=== PATIENT | female | born 1965 | race Caucasian/White ===

== ENCOUNTER 2025-07-13 10:41 | Observation (INO) | payer OTHER, SELFPAY ==
[2025-07-13] VITALS (18 sets, daily range): BP systolic 134–209; BP diastolic 60–98; PULSE 68–135; RESP 14–36; TEMP 36.4–36.8; O2SAT 94–100; BMI 25.0
--- NOTE | 2025-07-13 | ECHO_ITS ---
Patient Info Name: Liss Blood Age: 60 years : 1965 Gender: Female Ht: 62 in Wt: 141 lbs BSA: 1.69 m2 HR: 87 bpm BP: 205 / 98 mmHg Technical Quality: Good Exam Date: 07/13/2025 2:52 PM Patient Status: I Admit Date: 07/13/2025 Exam Type: CA echo doppler color flow Complete two-dimensional, color flow and Doppler transthoracic echocardiogram is performed. Staff Referring Physician: Diogenes Rae MD Hand Woodworking Sander: Mariana Alejandra Attending Provider: Amelia Avila Summary 1. Complete two-dimensional, color flow and Doppler transthoracic echocardiogram is performed. 2. Left ventricular chamber dimension is normal. 3. Left ventricular systolic function is normal, estimated at 60-65. 4. There is mild concentric increased left ventricular wall thickness. 5. The left ventricular diastolic function is grade I diastolic dysfunction. 6. E/e' 8 is minimally elevated. 7. The aortic valve is not well visualized. Cannot determine number of aortic valve leaflets. 8. There is moderate aortic valve sclerosis. 9. There is mild aortic valve stenosis with a peak velocity of 206 cm/s, mean gradient of 9 mmHg, and aortic valve area of 1.7 cm2. Left Ventricle E/e' 8 is minimally elevated. Left ventricular chamber dimension is normal. Left ventricular systolic function is normal, estimated at 60-65. There is mild concentric increased left ventricular wall thickness. The left ventricular diastolic function is grade I diastolic dysfunction. Right Ventricle Right ventricular chamber dimension is normal. Right ventricular systolic function is normal and with normal TAPSE 1.8 cm. Left Atria Left atrial chamber dimension is normal. Right Atria Right atrial chamber dimension is normal. Aortic Valve The aortic valve is not well visualized. Cannot determine number of aortic valve leaflets. There is moderate aortic valve sclerosis. There is mild aortic valve stenosis with a peak velocity of 206 cm/s, mean gradient of 9 mmHg, and aortic valve area of 1.7 cm2. There is no aortic valve regurgitation. Pulmonic Valve There is no pulmonic regurgitation. Mitral Valve There is no mitral valve stenosis. There is no mitral valve regurgitation. Tricuspid Valve There is no tricuspid valve regurgitation. Pericardium/Pleural There is no pericardial effusion. Inferior Vena Cava Normal inferior vena cava with >50% collapse upon inspiration consistent with normal right atrial pressure, 5 mmHg. Aorta The aortic root size at the sinus of Valsalva is normal. Left Ventricular Outflow Tract Name Value Normal LVOT 2D LVOT Diameter 1.8 cm LVOT Doppler LVOT Peak Velocity 140 cm/s LVOT Peak Gradient 7 mmHg LVOT Mean Gradient 4 mmHg LVOT VTI 30 cm LVOT VTI/AV VTI Ratio 0.6 LVOT Stroke Volume 77 ml LVOT CO 6.9 l/min LVOT CI 4.1 l/min/m2 Pulmonic Valve Name Value Normal RVOT Doppler RVOT Peak Velocity 120 cm/s RVOT Peak Gradient 6 mmHg PV Doppler PV Peak Velocity 157 cm/s PV Peak Gradient 10 mmHg Mitral Valve Name Value Normal MV Diastolic Function MV E Peak Velocity 93 cm/s MV A Peak Velocity 102 cm/s MV E/A 0.9 MV Decel Time (PW) 237 ms MV Annular TDI MV E/e' (Septal) 10.3 MV E/e' (Lateral) 7.6 MV E/e' (Average) 9.0 Tricuspid Valve Name Value Normal Estimated PAP/RSVP RA Pressure 5 mmHg <=5 Aortic Valve Name Value Normal AV Doppler AV Peak Velocity 206 cm/s AV Peak Gradient 16 mmHg AV Mean Gradient 9 mmHg AV VTI 46 cm AV Area (Cont Eq VTI) 1.7 cm2 >=3.0 AV Area (Cont Eq Bart) 1.7 cm2 AV DI (Bart) 0.68 AV Regurgitation 2D LVOT Area 2.6 cm2 Ventricles Name Value Normal LV Dimensions 2D/MM IVS Diastolic Thickness (2D) 1.0 cm 0.6-1.0 LVID Diastole (2D) 4.4 cm 3.8-5.2 LVIW Diastolic Thickness (2D) 0.7 cm 0.6-0.9 LVID Systole (2D) 2.1 cm 2.2-3.5 LVOT Diameter 1.8 cm LV Mass (2D Cubed) 120.28 g 67.00-162.00 LV Mass Index (2D Cubed) 71 g/m2 43-95 Relative Wall Thickness (2D) 0.34 <=0.42 LV Fractional Shortening/Ejection Fraction 2D/MM LV Fractional Shortening (2D) 46 % 27-45 LV EF (2D Teichholz) 84 % LV Diastolic Volume (4C MOD) 83 ml LV EF (4C MOD) 62 % LV Diastolic Volume (2C MOD) 80 ml LV EF (2C MOD) 59 % LV Diastolic Volume (BP MOD) 83 ml 46-106 LV Diastolic Volume Index (BP MOD) 49 ml/m2 29-61 LV Systolic Volume (BP MOD) 33 ml 14-42 LV Systolic Volume Index (BP MOD) 20 ml/m2 8-24 LV EF (BP MOD) 60 % 54-74 LV Diastolic Length (4C) 7.4 cm LV Systolic Length (4C) 5.9 cm LV Stroke Volume (4C MOD) 51 ml Atria Name Value Normal LA Dimensions LA Volume (4C A-L) 26 ml LA Volume (BP A-L) 27 ml RA Dimensions RA Systolic Major Killen Length (4C) 4.2 cm 2.2-2.8 RA Area (4C) 10.8 cm2 <=18.0 Report Signatures
--- NOTE | ~2025-07-13 | MR_ITS ---
EXAMINATION: MR brain/brain stem wo con DATE: 07/14/2025 09:04 INDICATION: Hypertension and dizziness TECHNIQUE: Magnetic resonance imaging (MRI) of the brain and brainstem was performed without intravenous contrast. Sequences included sagittal and axial T1-weighted SE, axial diffusion-weighted FS SE, axial 3D SWAN, axial T2-weighted FLAIR, and axial T2-weighted FSE. Apparent diffusion coefficient (ADC) maps were created. COMPARISON: None. FINDINGS: There is a region of increased T2 signal and restricted diffusion with decreased intensity on the ADC map at the left central aspect of the pernell consistent with acute to early subacute infarct of likely less than 10 days of age. No intracranial hemorrhage or abnormal intracranial mass lesion. There are a few scattered small foci of nonspecific increased T2-weighted signal intensity in the cerebral white matter, predominantly involving the deep and periventricular white matter which is within normal limits for age. There are no intraparenchymal signal abnormalities seen on the other pulse sequences. The ventricles are symmetric and normal in size. There are no abnormal extra-axial fluid collections. Flow voids are seen in the cerebral arteries on the T2- weighted sequences consistent with their expected patency. Mild mucosal thickening the bilateral ethmoid sinuses. Visualized orbits and soft tissues are unremarkable. IMPRESSION: 1. 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 Reviewed, dictated and finalized at location A.
--- NOTE | ~2025-07-13 | XR_ITS ---
EXAMINATION: XR chest 1V portable 07/13/2025 12:41 INDICATION: Dizziness TECHNIQUE:A single portable AP upright frontal image of the chest was obtained. COMPARISON: 07/12/2025 FINDINGS: Heart is not enlarged. No pneumothorax. No pleural effusion. No free air under the diaphragm. Opacities in the lower lungs. IMPRESSION: 1: Small opacities in the mid and lower lungs which represents atelectasis/scarring or infiltrates. Reviewed, dictated and finalized at location A. IMPRESSION: 1: Small opacities in the mid and lower lungs which represents atelectasis/sca rring or infiltrates.
--- NOTE | ~2025-07-13 | CT_ITS ---
EXAMINATION: CTA brain carotid DATE: 07/14/2025 19:10 CDT INDICATION: Hypertension and dizziness TECHNIQUE: Computed tomographic angiography (CTA) of the head was performed without and with 100 mL Omnipaque-350 intravenous contrast. CTA of the neck was performed with intravenous contrast. The dose-length product was 1556.22 mGy-cm. Maximum intensity projection and volume rendered 3D-reconstructions were created by the technologist on a separate workstation. COMPARISON: CT brain dated 07/13/2025. FINDINGS: HEAD CTA: Brain parenchymal volume is normal for age. No ventriculomegaly or midline shift. Paranasal sinuses demonstrate mild mucosal thickening of the maxillary sinuses. Mastoids are pneumatized. No depressed skull fractures. There is mild atherosclerosis of the cavernous segments of the carotid arteries. Otherwise, the arteries are within normal limits without occlusion or significant stenosis. Dominant right vertebral artery. NECK CTA: There is mild atherosclerotic plaque at the origin internal carotid arteries with 32% stenosis of the right internal carotid artery and less than 20% stenosis of the left internal carotid artery. No evidence for dissection. The origins of the vertebral and common carotid arteries are patent. Lung apices are normal. No significant cervical lymphadenopathy. Thyroid gland is unremarkable. Lung apices are normal. IMPRESSION: 1: No significant vascular abnormality of the head or neck. 2: No acute intracranial abnormality. Reviewed, dictated and finalized at location O.
--- NOTE | ~2025-07-13 | CT_ITS ---
EXAMINATION: CT brain wo con DATE: 07/13/2025 12:18 INDICATION: Slurred speech TECHNIQUE: Computed tomography (CT) of the head was performed without intravenous contrast. The dose-length product was 529.67 mGy-cm. COMPARISON: None FINDINGS: No acute intracranial hemorrhage. No mass effect. No midline shift. No hydrocephalus. No skull fracture. Visualized paranasal sinuses and mastoid air cells are clear. Metallic density about the left ear with adjacent artifact. IMPRESSION: 1. No acute intracranial hemorrhage. No mass effect. Reviewed, dictated and finalized at location A.
--- NOTE | 2025-07-13 10:57 | ECG_ITS ---
Test Date: 2025-07-13 11:05:43 Measurements Intervals [place] Rate: 125 P: 64 DC: 153 QRS: 18 QRSD: 92 T: 44 QT: 307 QTc: 444 Interpretive Statements SINUS TACHYCARDIA INCOMPLETE RIGHT BUNDLE BRANCH BLOCK ABNORMAL ECG No previous ECG available for comparison Electronically Signed On 07-13-2025 11:13:39 CDT by Mike Mullins D.O.
[2025-07-13 11:05] LABS: Hematocrit 46.3 % (37.0-47.0); Hemoglobin 15.3 g/dL (12.0-15.0); Immature Granulocyte Percent A 0.4 % (0-0.5); Lymphocytes Absolute Auto 2.43 K/mm3 (0.9-3.2); Mean Corpuscular HGB Conc 33.0 g/dl (32-36); Mean Corpuscular Hemoglobin 30.0 pg (26-34); Mean Corpuscular Volume 90.8 fl (80-100); Nucleated Red Blood Cells Absolute Auto 0.000 K/mm3 (0.0-0.012); Nucleated Red Blood Cells Perc 0.0 % (0.0-0.2); Platelet Count Result 289 k/mm3 (150-375); Red Blood Count 5.10 M/mm3 (4.2-5.4); White Blood Count 9.9 K/mm3 (4.5-10.0)
--- NOTE | 2025-07-13 11:09 | ED.GENADULT ---
HPI - General Adult General Chief complaint: Dizziness Stated complaint: dizzy, slurred speech Time Seen by Provider: 07/13/25 11:09 Source: patient and family Mode of arrival: ambulatory Limitations: no limitations History of Present Illness HPI narrative: 60 years old white female came from home by private car with her family who is telling me that patient been feeling dizzy, slurred speech and acting off prior to arrival. Patient usually wake up at 5:00 a.m. to go to work and was doing okay at that time. at work she take a break and during that break went back home for half an hour then go back to work at again. During that break her family noticed the above symptoms. Patient is healthy otherwise, not on any medication, last time was seen by a physician years ago. She smokes cigarettes, drink alcohol almost daily, denies any drug use or abuse. Currently patient is asymptomatic. The slurry speech is improving according to her family. Patient is restless and does not want stay in the hospital or doing any blood workup at this time. Eventually she agreed after pressure from her family. She denies any fever, chills, nausea, vomiting, chest pain, shortness of breath, headache, back pain or focal neuro deficit. Related Data Home Medications ?Medication ?Instructions ?Recorded ?Confirmed ?Last Taken ?Type No Home Medications 05/06/22 07/13/25 Unknown History Allergies Allergy/AdvReac Type Severity Reaction Status Date / Time No Known Allergies Allergy Unknown Verified 07/13/25 11:24 Review of Systems Review of Systems: All systems reviewed & are unremarkable except as noted in HPI and below PMFSH Past Medical History Medical History Heart murmur Screening mammogram, encounter for Miscarriage High cholesterol Abnormal Pap smear of cervix ASCUS HPV- (2010) Surgical History Surgical History History of dilation and curettage suction d&c History of foot surgery 2010 tumor removed lt foot History of 88, 89 Family History Family History Father Diabetes mellitus Hypertension TIA (transient ischemic attack) Mother Diabetes mellitus Hypertension Other Malignant carcinoid tumor of lung maternal aunt Social History Social History Smoking packs per day: 1 Smoking cigarettes per day: 20.0 Years smoked: 40 Smoking pack-years: 40.00 Smoking status: Current every day smoker Tobacco type: cigarettes Alcohol intake: current Drinks per week: 6 Substance use: never Substance use type: does not use Lack of Transportation: No Lack of Food: Never True Current Housing: I Have Housing Concerned About Future Housing: No Difficulty Paying Gas/Electric Bills: No Difficulty Paying for Meds: No Currently Unemployed: No Education: Trade/Vocational Certificate Difficulty w/ Childcare or Family Care: No Living arrangements: other Additional living arrangements comments: Occupation/Education: occupation 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 Gender identity (if verbalized by the patient): Female Sexual Orientation (if Verbalized by the Patient): Straight or Heterosexual Spiritual care concerns: No Exam Narrative: General appearance: Well-developed, well-nourished , anxious, restless Skin: Normal color Head: Normocephalic, nontraumatic Eyes: Clear conjunctiva ENT: Oropharynx normal, ears normal, nose normal Neck: Supple, nontender Chest and respiratory: Airway patent, no respiratory distress, no accessory muscle use Heart: Regular rate/rhythm Abdomen: Soft, nontender, no organomegaly, quiet bowel sounds Vascular: Normal peripheral pulses, normal capillary refill. Musculoskeletal: Normal range of motion, nontender back Neurologic: Alert and oriented ?3, MEDICAL STAFF COORDINATOR is normal as tested, no gross motor deficit Course Vital Signs Vital signs: Vital Signs Temperature 36.8 C 07/13/25 10:57 Pulse Rate 128 H 07/13/25 10:57 Respiratory Rate 28 H 07/13/25 10:57 Blood Pressure 202/93 H 07/13/25 10:57 Pulse Oximetry 99 07/13/25 10:57 Oxygen Delivery Room Air 07/13/25 10:57 Temperature 36.6 C 07/14/25 08:00 Pulse Rate 97 07/14/25 16:00 Respiratory Rate 19 07/14/25 10:00 Blood Pressure 150/74 H 07/14/25 10:00 Pulse Oximetry 99 07/14/25 10:00 Oxygen Delivery Room Air 07/14/25 20:00 Medical Decision Making MDM Narrative Medical decision making narrative: patient came to the hospital from home with chief complain of dizziness, feeling of and slurred speech Vital signs showing blood pressure 202/93, heart rate 128, respiration 28 otherwise insignificant Physical examination showing restless anxious patient Differential diagnosis uncontrolled hypertension, hypertensive encephalopathy, CVA, electrolyte imbalance, dehydration, kidney failure Blood workup today includes CBC, CMP, troponin, proBNP, coags showed blood glucose of 529, sodium of 133 otherwise within normal limit Blood gas on room air showed pH of 7.49 EKG on arrival showed sinus tachycardia Chest x-ray on arrival showed no acute abnormality CT head without contrast showed no acute abnormality Diagnosis hyperglycemia, hypertension Admit to hospitalist Vital Signs Vital Signs: Vital Signs Temperature 36.8 C 07/13/25 10:57 Pulse Rate 128 H 07/13/25 10:57 Respiratory Rate 28 H 07/13/25 10:57 Blood Pressure 202/93 H 07/13/25 10:57 Pulse Oximetry 99 07/13/25 10:57 Oxygen Delivery Room Air 07/13/25 10:57 Temperature 36.6 C 07/14/25 08:00 Pulse Rate 97 07/14/25 16:00 Respiratory Rate 19 07/14/25 10:00 Blood Pressure 150/74 H 07/14/25 10:00 Pulse Oximetry 99 07/14/25 10:00 Oxygen Delivery Room Air 07/14/25 20:00 Lab Data 07/14/25 05:04 07/14/25 05:04 Labs: Lab Results 07/13/25 07/13/25 07/13/25 Range/Units 10:45 10:58 10:59 WBC 9.9 (4.5-10.0) K/mm3 RBC 5.10 (4.2-5.4) M/mm3 Hgb 15.3 H (12.0-15.0) g/dL Hct 46.3 (37.0-47.0) % MCV 90.8 (80-100) fl MCH 30.0 (26-34) pg MCHC 33.0 (32-36) g/dl RDW 12.8 (11.5-14.5) % Plt Count 289 (150-375) k/mm3 MPV 11.2 H (7.4-10.4) fl Immature Gran % (Auto) 0.4 (0-0.5) % Neut % (Auto) 67.3 (45.5-73.1) % Lymph % (Auto) 24.7 (18.3-44.2) % [place] % (Auto) 4.3 (2.6-8.5) % Eos % (Auto) 2.7 (0-4.4) % Baso % (Auto) 0.6 (0.2-1.2) % Lymph # (Auto) 2.43 (0.9-3.2) K/mm3 [place] # (Auto) 0.4 (0.1-0.6) K/mm3 Eos # (Auto) 0.3 (0-0.3) K/mm3 Baso # (Auto) 0.1 (0.0-0.1) K/mm3 Abs Immat Gran (auto) 0.04 H (0.00-0.031) K/mm3 Absolute Neuts (auto) 6.6 (1.3-6.7) K/mm3 Absolute Nucleated RBC 0.000 (0.0-0.012) K/mm3 Nucleated RBC % 0.0 (0.0-0.2) % Sodium 133 L (137-145) mmol/L Potassium 4.2 (3.4-5.0) mmol/L Chloride 97 L (98-107) mmol/L Carbon Dioxide 24 (22-30) mmol/L Anion Gap 12 (4-12) mmol/L BUN 12 (7-17) mg/dL Creatinine 0.56 L (0.7-1.0) mg/dL Estim Creat Clear Calc 70 ml/min Estimated GFR > 60 (59 - ) Glucose 501 H* (65-110) mg/dL POC Capillary Glucose 499 H (65-105) mg/dl Hemoglobin A1c 11.5 H (<5.7) % Calcium 9.8 (8.4-10.2) mg/dL Phosphorus 3.8 (2.5-4.5) mg/dL Magnesium 1.9 (1.6-2.3) mg/dL Total Bilirubin 0.9 (0.2-1.3) mg/dL AST 25 (14-36) U/L ALT 22 (6-35) U/L Alkaline Phosphatase 180 H (38-126) U/L Total Protein 8.8 H (6.3-8.2) g/dL Albumin 4.7 (3.5-5.1) g/dL Beta-Hydroxybutyrate/Acetoacetate 0.36 H (0.02-0.27) mmol/L Urine Color (Yellow) Urine Appearance (Clear) Urine pH (5.0-9.0) Ur Specific [place] (1.001-1.035) Urine Protein (Negative) mg/dL Urine Glucose (UA) (Negative) mg/dL Urine Ketones (Negative) mg/dL Ur Blood (Man) (Negative) Urine Nitrate (Negative) Urine Bilirubin (Negative) Urine Urobilinogen (<2.0) mg/dL Leukocyte Esterase Rfl (Negative) VITALY/UL Urine RBC (0-2) /hpf Urine WBC (0-3) /hpf Ur Squamous Epith Cells (Few) /hpf Urine Bacteria /hpf Urine Casts Urine Opiates Screen (Negative) Urine Methadone Screen (Negative) Ur Barbiturates Screen (Negative) Ur Phencyclidine Scrn (Negative) Ur Amphetamine Screen (Negative) U Benzodiazepines Scrn (Negative) Urine Cocaine Screen (Negative) U Cannabinoids Screen (Negative) Ethyl Alcohol < 10 (<10) mg/dL Influenza A (RT-PCR) (Negative) Influenza B (RT-PCR) (Negative) RSV (RT-PCR) (Negative) SARS-CoV-2 RNA (RT-PCR) (Negative) 07/13/25 07/13/25 Range/Units 11:17 13:14 WBC (4.5-10.0) K/mm3 RBC (4.2-5.4) M/mm3 Hgb (12.0-15.0) g/dL Hct (37.0-47.0) % MCV (80-100) fl MCH (26-34) pg MCHC (32-36) g/dl RDW (11.5-14.5) % Plt Count (150-375) k/mm3 MPV (7.4-10.4) fl Immature Gran % (Auto) (0-0.5) % Neut % (Auto) (45.5-73.1) % Lymph % (Auto) (18.3-44.2) % [place] % (Auto) (2.6-8.5) % Eos % (Auto) (0-4.4) % Baso % (Auto) (0.2-1.2) % Lymph # (Auto) (0.9-3.2) K/mm3 [place] # (Auto) (0.1-0.6) K/mm3 Eos # (Auto) (0-0.3) K/mm3 Baso # (Auto) (0.0-0.1) K/mm3 Abs Immat Gran (auto) (0.00-0.031) K/mm3 Absolute Neuts (auto) (1.3-6.7) K/mm3 Absolute Nucleated RBC (0.0-0.012) K/mm3 Nucleated RBC % (0.0-0.2) % Sodium (137-145) mmol/L Potassium (3.4-5.0) mmol/L Chloride (98-107) mmol/L Carbon Dioxide (22-30) mmol/L Anion Gap (4-12) mmol/L BUN (7-17) mg/dL Creatinine (0.7-1.0) mg/dL Estim Creat Clear Calc ml/min Estimated GFR (59 - ) Glucose (65-110) mg/dL POC Capillary Glucose 360 H (65-105) mg/dl Hemoglobin A1c (<5.7) % Calcium (8.4-10.2) mg/dL Phosphorus (2.5-4.5) mg/dL Magnesium (1.6-2.3) mg/dL Total Bilirubin (0.2-1.3) mg/dL AST (14-36) U/L ALT (6-35) U/L Alkaline Phosphatase (38-126) U/L Total Protein (6.3-8.2) g/dL Albumin (3.5-5.1) g/dL Beta-Hydroxybutyrate/Acetoacetate (0.02-0.27) mmol/L Urine Color Yellow (Yellow) Urine Appearance Cloudy H (Clear) Urine pH 7.0 (5.0-9.0) Ur Specific [place] 1.040 H (1.001-1.035) Urine Protein Negative (Negative) mg/dL Urine Glucose (UA) 3+ H (Negative) mg/dL Urine Ketones Trace H (Negative) mg/dL Ur Blood (Man) Negative (Negative) Urine Nitrate Negative (Negative) Urine Bilirubin Negative (Negative) Urine Urobilinogen 0.2 (<2.0) mg/dL Leukocyte Esterase Rfl Negative (Negative) VITALY/UL Urine RBC 0-2 (0-2) /hpf Urine WBC 0-5 (0-3) /hpf Ur Squamous Epith Cells None seen (Few) /hpf Urine Bacteria None seen /hpf Urine Casts 0-2 Urine Opiates Screen Negative (Negative) Urine Methadone Screen Negative (Negative) Ur Barbiturates Screen Negative (Negative) Ur Phencyclidine Scrn Negative (Negative) Ur Amphetamine Screen Negative (Negative) U Benzodiazepines Scrn Negative (Negative) Urine Cocaine Screen Negative (Negative) U Cannabinoids Screen Negative (Negative) Ethyl Alcohol (<10) mg/dL Influenza A (RT-PCR) Negative (Negative) Influenza B (RT-PCR) Negative (Negative) RSV (RT-PCR) Negative (Negative) SARS-CoV-2 RNA (RT-PCR) Negative (Negative) ABG Data ABG results: 07/13/25 11:38 Puncture Site Right radial ABG pH 7.476 H ABG pCO2 31.0 L ABG pO2 85.1 ABG PO2/FiO2 Ratio 4.05 ABG HCO3 22.4 ABG O2 Saturation 97.1 ABG O2 Content 19.7 ABG Base Excess -0.1 A-a Gradient 27.5 Oxyhemoglobin 89.7 L Total Hemoglobin 15.6 O2 Delivery Device Room air O2 Liters/Min Not Reportable FiO2 21 Critical Care Time Critical Care Time Critical Care Time: Yes Total Critical Care Time: 30 Discharge Plan Discharge Clinical Impression: Hypertension, Hyperglycemia Patient Disposition: Still a Patient Condition: Improved
--- OUTSIDE RECORDS SUMMARY | 2025-07-13 11:24 | XMS_ITS | Clinical Summary ---
Author Organization 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 Gender Identity Not on file Sexual Orientation Not on file Plan of Treatment Health Maintenance Due Date Last Done Comments Hepatitis C Virus (HCV) Screening 1965 TdaP Immunization 1965 Pap Smear 1984 Cervical Cancer Screening (CCS) 1993 HPV/Cotest 1993 Cologuard 2008 Colonoscopy 2008 Colorectal Cancer Screening 2008 Immunochemical Fecal Occult Blood 2008 Pneumococcal Immunization (5 0+ years) (1 of 1 - PCV) 2013 Zoster Immunization (1 of 2) 2013 SARS-COV-2 Immunization (1 - 2023- season) 2024 Influenza Immunization (#1) 2025 Respiratory Syncytial Virus (RSV) Immunization (Adult) (1 - 1-dose 75+ series) 2038 Hepatitis B Immunization Aged Out No longer eligible based on patient's age to complete this topic Human Papillomavirus (HPV) Immunization Aged Out No longer eligible b ased on patient's age to complete this topic Meningococcal Immunization (ACWY) Aged Out No longer eligible based on patient's age to complete this topic Rotavirus Immunization Aged Out No lo nger eligible based on patient's age to complete this topic
[2025-07-13 11:30] LABS: Add Urine Microscopic? YES; Appearance Urine Cloudy (Clear); Glucose Urine UA 3+ mg/dL (Negative); Leukocyte Esterase Ur Negative LEU/UL (Negative); Nitrate Urine Negative (Negative); Non Pathogenic Casts 0-2; Specific Grav Ur 1.040 (1.001-1.035)
[2025-07-13 11:35] LABS: Beta-Hydroxybutyrate/Acetoacetate 0.36 mmol/L (0.02-0.27)
[2025-07-13] MEDS: SODIUM CHLORIDE 0.9% IV 1,000 ML 1500 ML IV CONT (11:38)
[2025-07-13 11:41] LABS: Alveolar/Arterial O2 Gradient 27.5 mmHg; Fractional Inspired Oxygen 21 %; HCO3 ABG 22.4 mEq/l (22.0-26.0); Oxygen Content ABG 19.7 %vol (16.0-22.0); Oxygen Saturation ABG 97.1 % (95.0-100.0); PCO2 ABG 31.0 mmHg (35.0-45.0); PO2 ABG 85.1 mmHg (80.0-100.0); PO2 FiO2 Ratio Arterial Blood 4.05 %
[2025-07-13] MEDS: diazePAM INJ (*CRX) 10 MG/2 ML SYRINGE 5 MG IV PUSH (11:41)
[2025-07-13 11:43] LABS: Modified Allen's Test Pass; Site Drawn RIGHT RADIAL
[2025-07-13 12:00] LABS: Alanine Aminotransferase 22 U/L (6-35); Albumin Level 4.7 g/dL (3.5-5.1); Alkaline Phosphatase 180 U/L (38-126); Anion Gap 12 mmol/L (4-12); Aspartate Amino Transferase 25 U/L (14-36); Bilirubin,Total 0.9 mg/dL (0.2-1.3); Blood Urea Nitrogen 12 mg/dL (7-17); Calcium 9.8 mg/dL (8.4-10.2); Carbon Dioxide 24 mmol/L (22-30); Chloride 97 mmol/L (98-107); Estimated CRCL calculation 70 ml/min; Estimated Glomerular Filt Rate > 60; Glucose 501 mg/dL (65-110); Magnesium 1.9 mg/dL (1.6-2.3); Potassium 4.2 mmol/L (3.4-5.0); Sodium 133 mmol/L (137-145); Total Protein 8.8 g/dL (6.3-8.2)
[2025-07-13 12:07] LABS: Influenza A QL RT-PCR Negative (Negative); Influenza B QL RT-PCR Negative (Negative); RSV RNA, RT-PCR Negative (Negative); SARS-CoV-2 RNA PCR Negative (Negative)
[2025-07-13 12:11] LABS: Cannabinoid Screen Urine Negative (Negative)
--- OUTSIDE RECORDS SUMMARY | 2025-07-13 12:19 | XMS_ITS | Clinical Summary ---
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
[2025-07-13] MEDS: INSULIN HUMAN REGULAR (*BKC) 100 UNITS/ML 10 UNITS IV PUSH (12:37)
[2025-07-13 13:04] LABS: Hemoglobin A1C 11.5 % (<5.7)
[2025-07-13] MEDS: INSULIN HUMAN REGULAR (*BKC) 100 UNITS in SODIUM CHLORIDE 0.9% IV 99 ML 6 UNITS IV CONT (13:17)
--- NOTE | 2025-07-13 14:08 | WPDCNINT ---
Assessment and Plan Assessment and plan (1) DKA (diabetic ketoacidosis): Code(s): E11.10 - Type 2 diabetes mellitus with ketoacidosis without coma Status: Acute Assessment and Plan: Patient presented with elevated blood sugar and slightly elevated beta hydroxybutyrate. Her anion gap is normal. She is in mild DKA Pt was given IVF bolus and I will give additional 500 mL LR bolus She was given insulin bolus and started insulin infusion which will be continued Continue Q1H glucose monitoring is being done Serial labs ordered and will be monitor Replace electrolytes as needed Will transition to SC insulin once AG is closed NPO Consult diabetic take educator and dietitian (2) Dizziness: Code(s): R42 - Dizziness and giddiness Status: Acute Assessment and Plan: Patient presented with dizziness which could be secondary to hyperglycemia, DKA or elevated blood pressure. 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 I will try to bring now close to 180. Since patient is asymptomatic at this time P.r.n. labetalol Start p.o. losartan and Norvasc Plan DVT prophylaxis - SCD Nutrition - NPO Code Status - Full Code Total Critical Care Time - 30 minutes Due to a high probability of clinically significant, life threatening deterioration, the patient required my highest level of preparedness to intervene emergently and I personally spent this critical care time directly and personally managing the patient. This critical care time included obtaining a history; examining the patient; pulse oximetry; ordering and review of studies; arranging urgent treatment with development of a management plan; evaluation of patient's response to treatment; frequent reassessment; and discussions with other providers. It was exclusive of separately billable procedures and treating other patients and teaching time. Please see Assessment and Plan section and the rest of the note for further information on patient assessment and treatment Cell Support Operator Consult Note Consult date: 07/13/25 Reason for consult: Uncontrolled hypertension, DKA HPI: Liss Blood is a 60 year old female with no significant past medical history who also does not see a physician and has not seen a physician in last many years presented with chief complaint of dizziness and confusion. Patient states she was forced to come to the hospital by her as she did not think anything serious was going on. She states she feels it dizzy today but no loss of consciousness or passing out. No chest pain shortness a breath palpitations abdominal pain nausea vomiting diarrhea constipation hematochezia melena. No blurred vision. states the patient had temporally with slurred speech where he could not understand what she was saying hence he what worried and brought her to the hospital. At this time patient states she is back to her baseline and does not have any symptoms. Her speech is normal. She states that she does not know why she needs to stay in the hospital and would like to be discharged. She denies any polyuria polydipsia nocturia but does admit to drinking lot of fluids during the day and also urinating after drinking. She does have good appetite but has lost weight. She has not had any lab workup blood pressure check for last few years. All other systems were reviewed and were negative Workup in the ER showed normal CBC platelet and WBC electrolyte showed blood glucose elevated at 501 hemoglobin A1c 11.5 and positive beta hydroxybutyrate although anion gap was normal, UA was negative for infection toxicology was negative, head CT was negative and chest x-ray was fairly unremarkable. Her systolic blood pressure was in 200 range and she received 1 dose of labetalol. Patient was given fluid bolus L and started on IV insulin infusion. Patient is now being admitted to ICU for DKA and low blood pressure Review of Systems Review of Systems: All systems reviewed & are unremarkable except as noted in HPI and below (HPI) [facility] Past Medical History Medical History (Updated 07/13/25 @ 14:10 by Diogenes Rae MD) Heart murmur Screening mammogram, encounter for Miscarriage High cholesterol Abnormal Pap smear of cervix ASCUS HPV- (2010) Surgical History Surgical History History of dilation and curettage suction d&c History of foot surgery 2010 tumor removed lt foot History of 86, 89 Family History Family History Father Diabetes mellitus Hypertension Mother Diabetes mellitus Hypertension Other Malignant carcinoid tumor of lung maternal aunt Social History Social History (Updated 07/13/25 @ 14:08 by Diogenes Rae MD) Smoking packs per day: 1 Smoking cigarettes per day: 20.0 Years smoked: 40 Smoking pack-years: 40.00 Smoking status: Current some day smoker Tobacco type: cigarettes Alcohol intake: current Drinks per week: 10 Substance use: never Substance use type: does not use Living arrangements: other Additional living arrangements comments: Occupation/Education: occupation 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 Gender identity (if verbalized by the patient): Female Sexual Orientation (if Verbalized by the Patient): Straight or Heterosexual Meds Home Medications and Allergies Home Medications ?Medication ?Instructions ?Recorded ?Confirmed ?Type No Home Medications 05/06/22 07/13/25 History Allergies Allergy/AdvReac Type Severity Reaction Status Date / Time No Known Allergies Allergy Unknown Verified 07/13/25 11:24 Vital Signs Vital Signs - 24 hr 07/13/25 10:57 07/13/25 11:07 07/13/25 11:07 Temperature 36.8 C 36.8 C Pulse Rate 128 H 128 H 128 H Respiratory Rate 28 H 28 H Blood Pressure 202/93 H 202/93 H Pulse Oximetry 99 99 Oxygen Delivery Room Air 07/13/25 11:33 07/13/25 11:50 07/13/25 12:01 Temperature Pulse Rate 135 H 107 H 105 H Respiratory Rate 25 H 24 H 19 Blood Pressure 209/96 H 194/96 H 151/79 H Pulse Oximetry 95 96 98 Oxygen Delivery 07/13/25 12:26 07/13/25 12:31 07/13/25 12:54 Temperature Pulse Rate 105 H 110 H 105 H Respiratory Rate 25 H 30 H 26 H Blood Pressure 164/74 H 173/78 H 156/85 H Pulse Oximetry 95 99 97 Oxygen Delivery 07/13/25 13:01 07/13/25 13:24 07/13/25 13:38 Temperature Pulse Rate 103 H 108 H 109 H Respiratory Rate 26 H 36 H 31 H Blood Pressure 149/79 H 174/85 H 205/98 H Pulse Oximetry 97 98 94 Oxygen Delivery Exam Narrative: General: Pt is alert awake and in NAD Lungs/Chest: Trachea central Clear BS B/L, No crackles or wheezing. Cardiac: RRR. Normal S1 S2. No murmurs Circulation: Pedal pulses are intact and symmetrical. Abdomen: Normal bowel sounds.. Soft. NT. ND. Extremities: No clubbing, cyanosis or edema. Warm : NAD Neurologic: Follows commands. AO x3 Moves all 4 extremities PERRL muscle strength is symmetric in all 4 extremities, sensation to touch intact, cranial nerves 2-12 intact, no facial asymmetry, speech normal Skin: No Rash Results Labs 07/13/25 10:59 07/13/25 10:58 Labs: Impressions Head CT 07/13/25 12:36 IMPRESSION: 1. No acute intracranial hemorrhage. No mass effect. Chest X-Ray 07/13/25 12:48 IMPRESSION: 1: Small opacities in the mid and lower lungs which represents atelectasis/scarring or infiltrates. Short CBC 07/13/25 Range/Units 10:59 WBC 9.9 (4.5-10.0) K/mm3 Hgb 15.3 H (12.0-15.0) g/dL Hct 46.3 (37.0-47.0) % Plt Count 289 (150-375) k/mm3 BMP 07/13/25 10:58 Sodium 133 L Potassium 4.2 Chloride 97 L Carbon Dioxide 24 BUN 12 Creatinine 0.56 L Glucose 501 H* Calcium 9.8 Liver Function 07/13/25 Range/Units 10:58 Total Bilirubin 0.9 (0.2-1.3) mg/dL AST 25 (14-36) U/L ALT 22 (6-35) U/L Alkaline Phosphatase 180 H (38-126) U/L Albumin 4.7 (3.5-5.1) g/dL Urine 07/13/25 Range/Units 11:17 Urine Color Yellow (Yellow) Urine Appearance Cloudy H (Clear) Urine pH 7.0 (5.0-9.0) Ur Specific [place] 1.040 H (1.001-1.035) Urine Protein Negative (Negative) mg/dL Urine Glucose (UA) 3+ H (Negative) mg/dL ECG Interpretation: Sinus tachycardia incomplete right bundle-branch block Quality VTE Prophylaxis VTE prophylaxis: mechanical ordered Hospitalist MIPS Advance Care Plan I have confirmed that the patient's Advanced Care Plan is present, code status is documented, or surrogate decision maker is listed in patient medical record.: Yes Medication Reconciliation I have utilized all available resources to obtain, update and review the patients current medications (includes all prescriptions, OTC, herbals, cannabis, and nutritional supplements).: Yes
[2025-07-13] MEDS: LOSARTAN POTASSIUM 25 MG TABLET PO (14:35)
[2025-07-13] MEDS: LACTATED RINGERS 500 ML 999 ML IV CONT (14:36)
[2025-07-13 15:12] LABS: Anion Gap 10 mmol/L (4-12); Blood Urea Nitrogen 11 mg/dL (7-17); Calcium 9.5 mg/dL (8.4-10.2); Carbon Dioxide 20 mmol/L (22-30); Chloride 105 mmol/L (98-107); Estimated CRCL calculation 80 ml/min; Estimated Glomerular Filt Rate > 60; Glucose 259 mg/dL (65-110); Potassium 3.8 mmol/L (3.4-5.0); Sodium 135 mmol/L (137-145)
[2025-07-13] MEDS: KCL 20 MEQ/D5/0.45% SOD CHL 1,000 ML 150 ML IV CONT (15:15)
[2025-07-13] MEDS: SODIUM CHLORIDE 0.9% IV 1,000 ML 150 ML IV CONT (17:08)
--- NOTE | 2025-07-13 17:19 | ADMGEN ---
This patient, Liss Blood, was admitted to [facility]. Patient/family oriented to hospital policies and general routines including ID bracelet, bed and alarms, visiting hours, pain management, procedures, bathroom and other care routines, personal items, smoking policy, room service/diet, and visiting hours. Information on how to activate the Rapid Response Team has been discussed. Patient/Family are encouraged to report perceived risks to care and to ask questions if they do not understand what they are told or what they should do.
--- NOTE | 2025-07-13 18:50 | P.HP_ITS ---
H&P: HPI History of Present Illness Date/Time: 07/13/25 18:50 Chief Complaint: Slurred speech and dizziness Narrative: 60 yo female with no significant PMH, who presented to the ER on account of slurred speech and dizziness which started about 730 am. noted her speech was slurred and noticed an unstable gait. However symptoms have resolved at the time of this encounter. Patinet denies any chest pain, abd pain, vomiting, focal weakness/deficits, dysuria and no diarrhea. Er eval BP 202/93, labs notable for BG 501, A1c 11.5 CT head unremarkable. Critical care was consulted prior to admission. Review of Systems Review of Systems: All other systems were reviewed and negative except as noted in the HPi above All systems reviewed & are unremarkable except as noted in HPI and below (HPI) [facility] Past Medical History Medical History (Updated 07/13/25 @ 14:10 by Diogenes Rae MD) Heart murmur Screening mammogram, encounter for Miscarriage High cholesterol Abnormal Pap smear of cervix ASCUS HPV- (2010) Surgical History Surgical History History of dilation and curettage suction d&c History of foot surgery 2010 tumor removed lt foot History of 88, 92 Family History Family History (Updated 07/13/25 @ 17:22 by Adrienne Gage RN) Father Diabetes mellitus Hypertension TIA (transient ischemic attack) Mother Diabetes mellitus Hypertension Other Malignant carcinoid tumor of lung maternal aunt Social History Social History (Updated 07/13/25 @ 14:08 by Diogenes Rae MD) Smoking packs per day: 1 Smoking cigarettes per day: 20.0 Years smoked: 40 Smoking pack-years: 40.00 Smoking status: Current every day smoker Tobacco type: cigarettes Alcohol intake: current Drinks per week: 6 Substance use: never Substance use type: does not use Lack of Transportation: No Lack of Food: Never True Current Housing: I Have Housing Concerned About Future Housing: No Difficulty Paying Gas/Electric Bills: No Difficulty Paying for Meds: No Currently Unemployed: No Education: Trade/Vocational Certificate Difficulty w/ Childcare or Family Care: No Living arrangements: other Additional living arrangements comments: Occupation/Education: occupation 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 Gender identity (if verbalized by the patient): Female Sexual Orientation (if Verbalized by the Patient): Straight or Heterosexual Spiritual care concerns: No Meds Home Medications and Allergies Home Medications ?Medication ?Instructions ?Recorded ?Confirmed ?Type No Home Medications 05/06/22 07/13/25 H istory Allergies Allergy/AdvReac Type Severity Reaction Status Date / Time No Known Allergies Allergy Unknown Verified 07/13/25 11:24 Vital Signs Vital Signs - 24 hr 07/13/25 10:57 07/13/25 11:07 07/13/25 11:07 Temperature 98.2 F 98.2 F Pulse Rate 128 H 128 H 128 H Respiratory Rate 28 H 28 H Blood Pressure 202/93 H 202/93 H Pulse Oximetry 99 99 Oxygen Delivery Room Air 07/13/25 11:33 07/13/25 11:50 07/13/25 12:01 Temperature Pulse Rate 135 H 107 H 105 H Respiratory Rate 25 H 24 H 19 Blood Pressure 209/96 H 194/96 H 151/79 H Pulse Oximetry 95 96 98 Oxygen Delivery 07/13/25 12:26 07/13/25 12:31 07/13/25 12:54 Temperature Pulse Rate 105 H 110 H 105 H Respiratory Rate 25 H 30 H 26 H Blood Pressure 164/74 H 173/78 H 156/85 H Pulse Oximetry 95 99 97 Oxygen Delivery 07/13/25 13:01 07/13/25 13:24 07/13/25 13:38 Temperature Pulse Rate 103 H 108 H 109 H Respiratory Rate 26 H 36 H 31 H Blood Pressure 149/79 H 174/85 H 205/98 H Pulse Oximetry 97 98 94 Oxygen Delivery 07/13/25 15:16 07/13/25 16:21 07/13/25 17:04 Temperature 97.8 F Pulse Rate 79 84 85 Respiratory Rate 24 H 19 14 Blood Pressure 160/73 H 136/77 160/71 H Pulse Oximetry 99 100 99 Oxygen Delivery 07/13/25 18:00 07/13/25 18:00 Temperature Pulse Rate 81 81 Respiratory Rate 18 Blood Pressure 134/60 Pulse Oximetry 98 Oxygen Delivery Exam Narrative: General: Pt is alert awake and in NAD Lungs/Chest: Trachea central Clear BS B/L, No crackles or wheezing. Cardiac: RRR. Normal S1 S2. No murmurs Circulation: Pedal pulses are intact and symmetrical. Abdomen: Normal bowel sounds.. Soft. NT. ND. Extremities: No clubbing, cyanosis or edema. Warm : NAD Neurologic: Follows commands. AO x3 Moves all 4 extremities PERRL muscle strength is symmetric in all 4 extremities, sensation to touch intact, cranial nerves 2-12 intact, no facial asymmetry, speech normal Skin: No Rash Const: Other: General: alert and comfortable Eyes: EOMI, PERRLA ENNT External ears normal, Neck is supple, no masses, Respiratory systems: Clear to auscultation Cardiovascular S1, S2, normal rhythm, no murmur, rub, or gallop; no thrill or palpable murmurs on palpation. Gastrointestinal: soft, non-tender, and non-distended abdomen with no masses; BS present Skin: no rash, lesions, ulcerations, subcutaneous nodules or induration Musculoskeletal: no abnormality and no tenderness, normal ROM Neurologic: Alert and oriented x3, non focal Mental Status Exam: normal affect H&P: Results Labs Labs: Short CBC 07/13/25 Range/Units 10:59 WBC 9.9 (4.5-10.0) K/mm3 Hgb 15.3 H (12.0-15.0) g/dL Hct 46.3 (37.0-47.0) % Plt Count 289 (150-375) k/mm3 BMP 07/13/25 07/13/25 10:58 14:38 Sodium 133 L 135 L Potassium 4.2 3.8 Chloride 97 L 105 Carbon Dioxide 24 20 L BUN 12 11 Creatinine 0.56 L 0.48 L Glucose 501 H* 259 H Calcium 9.8 9.5 Liver Function 07/13/25 Range/Units 10:58 Total Bilirubin 0.9 (0.2-1.3) mg/dL AST 25 (14-36) U/L ALT 22 (6-35) U/L Alkaline Phosphatase 180 H (38-126) U/L Albumin 4.7 (3.5-5.1) g/dL Urine 07/13/25 Range/Units 11:17 Urine Color Yellow (Yellow) Urine Appearance Cloudy H (Clear) Urine pH 7.0 (5.0-9.0) Ur Specific [place] 1.040 H (1.001-1.035) Urine Protein Negative (Negative) mg/dL Urine Glucose (UA) 3+ H (Negative) mg/dL Assessment and Plan Assessment and plan (1) DKA (diabetic ketoacidosis): Code(s): E11.10 - Type 2 diabetes mellitus with ketoacidosis without coma Status: Acute Assessment and Plan: Dizziness likely related to DKA A1c 11.5 Continue Insulin and IVF per collection correspondent monitor (2) Uncontrolled hypertension: Code(s): I10 - Essential (primary) hypertension Status: Acute Assessment and Plan: Current blood pressure systolic to 105. I will try to bring now close to 180. Since patient is asymptomatic at this time P.r.n. labetalol Start p.o. losartan and Norvasc Plan Slurred speech with dizziness resolved at the time of encounter CT head unremarkable MRI brain, ECHO and CTA head and neck ordered Aspirin and lipitor Lipid panel PT/OT/ST Neurology consulted Possible Pneumonia CXR showed small opacities bilateral lungs Blood culture, MRSA pending Levaquin, monitor DVT prophylaxis on Sq Lovenox Full code SDM: [place] Blood Quality VTE Prophylaxis VTE prophylaxis: mechanical ordered Hospitalist [facility] Advance Care Plan I have confirmed that the patient's Advanced Care Plan is present, code status is documented, or surrogate decision maker is listed in patient medical record.: Yes Medication Reconciliation I have utilized all available resources to obtain, update and review the patients current medications (includes all prescriptions, OTC, herbals, cannabis, and nutritional supplements).: Yes
[2025-07-13 19:05] LABS: MRSA (PCR) NOT DETECTED (NOT DETECTE)
[2025-07-13 19:56] LABS: Anion Gap 9 mmol/L (4-12); Blood Urea Nitrogen 7 mg/dL (7-17); Calcium 9.2 mg/dL (8.4-10.2); Carbon Dioxide 24 mmol/L (22-30); Chloride 103 mmol/L (98-107); Estimated CRCL calculation 98 ml/min; Estimated Glomerular Filt Rate > 60; Glucose 154 mg/dL (65-110); Potassium 4.0 mmol/L (3.4-5.0); Sodium 136 mmol/L (137-145)
[2025-07-13] MEDS: levoFLOXacin 750 MG/D5W 150 ML 750 MG/150 ML BAG 100 MG IVPB (20:27)
[2025-07-13] MEDS: INSULIN GLARGINE (*BKC) 100 UNITS/ML 15 UNITS SUB-Q (21:40)
[2025-07-14] VITALS (10 sets, daily range): BP systolic 116–155; BP diastolic 64–85; PULSE 65–97; RESP 14–24; TEMP 36.4–36.7; O2SAT 96–99; BMI 24.8
[2025-07-14] MEDS: INSULIN ASPART (*BKC) 100 UNITS/ML SUB-Q ×4 (00:08→21:19)
[2025-07-14 05:13] LABS: Hematocrit 41.6 % (37.0-47.0); Hemoglobin 13.6 g/dL (12.0-15.0); Immature Granulocyte Percent A 0.4 % (0-0.5); Lymphocytes Absolute Auto 2.34 K/mm3 (0.9-3.2); Mean Corpuscular HGB Conc 32.7 g/dl (32-36); Mean Corpuscular Hemoglobin 30.4 pg (26-34); Mean Corpuscular Volume 92.9 fl (80-100); Nucleated Red Blood Cells Absolute Auto 0.000 K/mm3 (0.0-0.012); Nucleated Red Blood Cells Perc 0.0 % (0.0-0.2); Platelet Count Result 230 k/mm3 (150-375); Red Blood Count 4.48 M/mm3 (4.2-5.4); White Blood Count 7.9 K/mm3 (4.5-10.0)
[2025-07-14 05:26] LABS: Alanine Aminotransferase 18 U/L (6-35); Albumin Level 3.9 g/dL (3.5-5.1); Alkaline Phosphatase 114 U/L (38-126); Anion Gap 8 mmol/L (4-12); Aspartate Amino Transferase 20 U/L (14-36); Bilirubin,Total 0.6 mg/dL (0.2-1.3); Blood Urea Nitrogen 6 mg/dL (7-17); Calcium 9.0 mg/dL (8.4-10.2); Carbon Dioxide 25 mmol/L (22-30); Chloride 104 mmol/L (98-107); Estimated CRCL calculation 86 ml/min; Estimated Glomerular Filt Rate > 60; Glucose 132 mg/dL (65-110); Magnesium 2.0 mg/dL (1.6-2.3); Potassium 4.0 mmol/L (3.4-5.0); Sodium 137 mmol/L (137-145); Total Protein 7.0 g/dL (6.3-8.2)
--- NOTE | 2025-07-14 08:15 | P.PNINT_ITS ---
Progress Note: A&P Assessment and Plan (1) DKA (diabetic ketoacidosis): Code(s): E11.10 - Type 2 diabetes mellitus with ketoacidosis without coma Status: Acute Assessment and Plan: Patient presented with elevated blood sugar and slightly elevated beta hydroxybutyrate. Her anion gap is normal. She is in mild DKA Pt was given IVF bolus and started on insulin infusion Serial labs were ordered and monitored Pt now transitioned to SC insulin now Pt tolerating diet now Consult perinatal educator and dietitian Pending Start Metformin I spoke to patient regarding management options for diabetes mellitus including basal insulin, oral medications and other injectable drugs. (2) Dizziness: Code(s): R42 - Dizziness and giddiness Status: Acute Assessment and Plan: Patient presented with dizziness which could be secondary to hyperglycemia, DKA or elevated blood pressure. Other possibilities TIA or hypertensive encephalopathy She is currently asymptomatic Neuro exam is intact Head CT is negative Pending MRI brain gambling monitor ECHO Summary 1. Complete two-dimensional, color flow and Doppler transthoracic echocardiogram is performed. 2. Left ventricular chamber dimension is normal. 3. Left ventricular systolic function is normal, estimated at 60-65. 4. There is mild concentric increased left ventricular wall thickness. 5. The left ventricular diastolic function is grade I diastolic dysfunction. 6. E/e' 8 is minimally elevated. 7. The aortic valve is not well visualized. Cannot determine number of aortic valve leaflets. 8. There is moderate aortic valve sclerosis. 9. There is mild aortic valve stenosis with a peak velocity of 206 cm/s, mean gradient of 9 mmHg, and aortic valve area of 1.7 cm2. (3) Uncontrolled hypertension: Code(s): I10 - Essential (primary) hypertension Status: Acute Assessment and Plan: Current blood pressure systolic to 205. Improvng Continue P.r.n. labetalol COntinue p.o. losartan and Norvasc (4) Tobacco abuse counseling: Code(s): Z71.6 - Tobacco abuse counseling Status: Acute Assessment and Plan: Pt was counseled and encouraged to quit smoking and cut down on alcohol intake. Plan DVT prophylaxis - SCD Nutrition - CC Diet Code Status - Full Code Transfer out of ICU today Results of Echo discussed with pt and her family. Other results and plan discussed for today Subjective Date/time seen: 07/14/25 08:15 Vital signs were stable and blood pressures improved although not normalized has expected Overnight events reviewed. Patient's blood sugar improved and and she was transition to subcutaneous insulin. She was able to eat sandwich for dinner. She was given Lantus. She this morning denies any spine complaints whatsoever states she is ready to be discharged she does not know why she needs to stay in the hospital. She states she has no nausea vomiting headache dizziness lightheadedness chest pain shortness a breath weakness or numbness in any particular extremity. She states his speech is normal. All other systems were reviewed and were negative Review of Systems Review of Systems: All systems reviewed & are unremarkable except as noted in HPI and below (HPI) Exam Narrative: General: Pt is alert awake and in NAD Lungs/Chest: Trachea central Clear BS B/L, No crackles or wheezing. Cardiac: RRR. Normal S1 S2. No murmurs Circulation: Pedal pulses are intact and symmetrical. Abdomen: Normal bowel sounds.. Soft. NT. ND. Extremities: No clubbing, cyanosis or edema. Warm : NAD Neurologic: Follows commands. AO x3 Moves all 4 extremities PERRL muscle strength is symmetric in all 4 extremities, sensation to touch intact, cranial nerves 2-12 intact, no facial asymmetry, speech normal, no focal neurological deficit heparin Skin: No Rash Objective Data Vital Signs Vital Signs: Vital Signs - 24 hr 07/13/25 10:57 07/13/25 11:07 07/13/25 11:07 Temperature 36.8 C 36.8 C Pulse Rate 128 H 128 H 128 H Respiratory Rate 28 H 28 H Blood Pressure 202/93 H 202/93 H Pulse Oximetry 99 99 Oxygen Delivery Room Air 07/13/25 11:33 07/13/25 11:50 07/13/25 12:01 Temperature Pulse Rate 135 H 107 H 105 H Respiratory Rate 25 H 24 H 19 Blood Pressure 209/96 H 194/96 H 151/79 H Pulse Oximetry 95 96 98 Oxygen Delivery 07/13/25 12:26 07/13/25 12:31 07/13/25 12:54 Temperature Pulse Rate 105 H 110 H 105 H Respiratory Rate 25 H 30 H 26 H Blood Pressure 164/74 H 173/78 H 156/85 H Pulse Oximetry 95 99 97 Oxygen Delivery 07/13/25 13:01 07/13/25 13:24 07/13/25 13:38 Temperature Pulse Rate 103 H 108 H 109 H Respiratory Rate 26 H 36 H 31 H Blood Pressure 149/79 H 174/85 H 205/98 H Pulse Oximetry 97 98 94 Oxygen Delivery 07/13/25 15:16 07/13/25 16:21 07/13/25 17:04 Temperature 36.6 C Pulse Rate 79 84 85 Respiratory Rate 24 H 19 14 Blood Pressure 160/73 H 136/77 160/71 H Pulse Oximetry 99 100 99 Oxygen Delivery 07/13/25 18:00 07/13/25 18:00 07/13/25 20:00 Temperature 36.4 C L Pulse Rate 81 81 68 Respiratory Rate 18 19 Blood Pressure 134/60 157/75 H Pulse Oximetry 98 99 Oxygen Delivery 07/13/25 20:00 07/13/25 20:00 07/13/25 22:00 Temperature Pulse Rate 73 75 Respiratory Rate Blood Pressure Pulse Oximetry Oxygen Delivery Room Air 07/13/25 22:00 07/13/25 23:40 07/14/25 00:00 Temperature 36.7 C Pulse Rate 75 Respiratory Rate 24 H Blood Pressure 144/64 H Pulse Oximetry 97 97 Oxygen Delivery Room Air Room Air 07/14/25 00:00 07/14/25 00:00 07/14/25 02:00 Temperature 36.7 C Pulse Rate 75 75 65 Respiratory Rate 17 Blood Pressure 155/70 H Pulse Oximetry 97 Oxygen Delivery 07/14/25 02:00 07/14/25 04:00 07/14/25 04:00 Temperature 36.6 C Pulse Rate 65 65 Respiratory Rate 16 Blood Pressure 116/66 Pulse Oximetry 97 Oxygen Delivery Room Air 07/14/25 04:00 07/14/25 06:00 07/14/25 06:00 Temperature 36.5 C 36.7 C Pulse Rate 66 83 83 Respiratory Rate 14 24 H Blood Pressure 119/64 141/85 H Pulse Oximetry 97 96 Oxygen Delivery Intake/Output Intake/Output: Intake & Output 07/11/25 07/12/25 07/13/25 07/14/25 23:59 23:59 23:59 23:59 Intake Total 2738.5 400 Balance 2738.5 400 Meds/Results Medications: Active Medications Generic Name Dose Route Start Last Admin Trade Name Freq PRN Reason Stop Dose Admin Amlodipine Besylate 5 mg 07/13/25 14:10 07/13/25 14:35 Amlodipine Besylate 5 Mg Tablet PO 5 mg DAILY DESTINEY Administration Aspirin 81 mg 07/14/25 09:00 Aspirin 81 Mg Enteric Tablet PO BID [facility] Atorvastatin Calcium 40 mg 07/14/25 09:00 Atorvastatin 40 Mg Tablet PO DAILY DESTINEY Dextrose 12.5 gm 07/13/25 12:27 Dextrose 50% 25 Gm/50 Ml Syringe IV PUSH PRN PRN Hypoglycemia Protocol Glucagon 1 mg 07/13/25 12:27 Glucagon For Inj 1 Mg Vial IM PRN PRN Hypoglycemia Protocol Glucose 15 gm 07/13/25 12:27 Glucose Oral Gel 15 Gm Of Glucse In 37.5 Gm Tube PO PRN PRN Hypoglycemia Protocol Dextrose 1,000 mls @ 100 mls/hr 07/13/25 12:27 Dextrose 5% 1,000 Ml IVPB PRN PRN Hypoglycemia Protocol Levofloxacin/Dextrose 750 mg in 150 mls @ 100 mls/hr 07/13/25 19:00 07/13/25 21:57 Levaquin 750 Mg/D5w 150 Ml IVPB Infused Q24H [facility] Infusion Insulin Aspart 3 - 6 units 07/14/25 11:30 Insulin Aspart (*Bkc) 100 Units/Ml SUB-Q ACHS [facility] Protocol Insulin Glargine 15 units 07/14/25 21:00 Insulin Glargine (*Bkc) 100 Units/Ml SUB-Q HS [facility] Labetalol HCl 20 mg 07/13/25 14:04 07/13/25 14:14 Labetalol Hcl Inj 100 Mg/20 Ml Vial IV PUSH 20 mg Q4H PRN Administration SBP > 180 and HR>60-1st choice Losartan Potassium 25 mg 07/13/25 14:05 07/13/25 14:35 Losartan Potassium 25 Mg Tablet PO 25 mg DAILY DESTINEY Administration Metformin HCl 500 mg 07/14/25 08:00 Metformin Hcl 500 Mg Tablet PO BIDWM [facility] Perflutren Lipid Microsphere 0 ml 07/13/25 14:04 Perflutren Lipid Microspheres 1.5 Ml Vial Diluted To 10 Ml Total Volume IV PUSH 07/16/25 14:04 ONCE PRN adequate visualization Protocol Radiology Results: ITS Impressions Head CT 07/13/25 12:36 IMPRESSION: 1. No acute intracranial hemorrhage. No mass effect. Chest X-Ray 07/13/25 12:48 IMPRESSION: 1: Small opacities in the mid and lower lungs which represents atelectasis/scarring or infiltrates. Labs Labs: Laboratory Results - last 24 hr 07/13/25 07/13/25 07/13/25 10:45 10:58 10:59 WBC 9.9 RBC 5.10 Hgb 15.3 H Hct 46.3 MCV 90.8 MCH 30.0 MCHC 33.0 RDW 12.8 Plt Count 289 MPV 11.2 H Immature Gran % (Auto) 0.4 Neut % (Auto) 67.3 Lymph % (Auto) 24.7 [place] % (Auto) 4.3 Eos % (Auto) 2.7 Baso % (Auto) 0.6 Lymph # (Auto) 2.43 [place] # (Auto) 0.4 Eos # (Auto) 0.3 Baso # (Auto) 0.1 Abs Immat Gran (auto) 0.04 H Absolute Neuts (auto) 6.6 Absolute Nucleated RBC 0.000 Nucleated RBC % 0.0 Puncture Site ABG pH ABG pCO2 ABG pO2 ABG PO2/FiO2 Ratio ABG HCO3 ABG O2 Saturation ABG O2 Content ABG Base Excess A-a Gradient Oxyhemoglobin Total Hemoglobin O2 Delivery Device O2 Liters/Min FiO2 Sodium 133 L Potassium 4.2 Chloride 97 L Carbon Dioxide 24 Anion Gap 12 BUN 12 Creatinine 0.56 L Estim Creat Clear Calc 70 Estimated GFR > 60 Glucose 501 H* POC Capillary Glucose 499 H Hemoglobin A1c 11.5 H Calcium 9.8 Phosphorus 3.8 Magnesium 1.9 Total Bilirubin 0.9 AST 25 ALT 22 Alkaline Phosphatase 180 H Total Protein 8.8 H Albumin 4.7 Beta-Hydroxybutyrate/Acetoacetate 0.36 H Urine Color Urine Appearance Urine pH Ur Specific [place] Urine Protein Urine Glucose (UA) Urine Ketones Ur Blood (Man) Urine Nitrate Urine Bilirubin Urine Urobilinogen Leukocyte Esterase Rfl Urine RBC Urine WBC Ur Squamous Epith Cells Urine Bacteria Urine Casts Nasal MRSA (PCR) Urine Opiates Screen Urine Methadone Screen Ur Barbiturates Screen Ur Phencyclidine Scrn Ur Amphetamine Screen U Benzodiazepines Scrn Urine Cocaine Screen U Cannabinoids Screen Ethyl Alcohol < 10 Influenza A (RT-PCR) Influenza B (RT-PCR) RSV (RT-PCR) SARS-CoV-2 RNA (RT-PCR) 07/13/25 07/13/25 07/13/25 11:17 11:38 13:14 WBC RBC Hgb Hct MCV MCH MCHC RDW Plt Count MPV Immature Gran % (Auto) Neut % (Auto) Lymph % (Auto) [place] % (Auto) Eos % (Auto) Baso % (Auto) Lymph # (Auto) [place] # (Auto) Eos # (Auto) Baso # (Auto) Abs Immat Gran (auto) Absolute Neuts (auto) Absolute Nucleated RBC Nucleated RBC % Puncture Site Right radial ABG pH 7.476 H ABG pCO2 31.0 L ABG pO2 85.1 ABG PO2/FiO2 Ratio 4.05 ABG HCO3 22.4 ABG O2 Saturation 97.1 ABG O2 Content 19.7 ABG Base Excess -0.1 A-a Gradient 27.5 Oxyhemoglobin 89.7 L Total Hemoglobin 15.6 O2 Delivery Device Room air O2 Liters/Min Not Reportable FiO2 21 Sodium Potassium Chloride Carbon Dioxide Anion Gap BUN Creatinine Estim Creat Clear Calc Estimated GFR Glucose POC Capillary Glucose 360 H Hemoglobin A1c Calcium Phosphorus Magnesium Total Bilirubin AST ALT Alkaline Phosphatase Total Protein Albumin Beta-Hydroxybutyrate/Acetoacetate Urine Color Yellow Urine Appearance Cloudy H Urine pH 7.0 Ur Specific [place] 1.040 H Urine Protein Negative Urine Glucose (UA) 3+ H Urine Ketones Trace H Ur Blood (Man) Negative Urine Nitrate Negative Urine Bilirubin Negative Urine Urobilinogen 0.2 Leukocyte Esterase Rfl Negative Urine RBC 0-2 Urine WBC 0-5 Ur Squamous Epith Cells None seen Urine Bacteria None seen Urine Casts 0-2 Nasal MRSA (PCR) Urine Opiates Screen Negative Urine Methadone Screen Negative Ur Barbiturates Screen Negative Ur Phencyclidine Scrn Negative Ur Amphetamine Screen Negative U Benzodiazepines Scrn Negative Urine Cocaine Screen Negative U Cannabinoids Screen Negative Ethyl Alcohol Influenza A (RT-PCR) Negative Influenza B (RT-PCR) Negative RSV (RT-PCR) Negative SARS-CoV-2 RNA (RT-PCR) Negative 07/13/25 07/13/25 07/13/25 14:13 14:38 14:40 WBC RBC Hgb Hct MCV MCH MCHC RDW Plt Count MPV Immature Gran % (Auto) Neut % (Auto) Lymph % (Auto) [place] % (Auto) Eos % (Auto) Baso % (Auto) Lymph # (Auto) [place] # (Auto) Eos # (Auto) Baso # (Auto) Abs Immat Gran (auto) Absolute Neuts (auto) Absolute Nucleated RBC Nucleated RBC % Puncture Site ABG pH ABG pCO2 ABG pO2 ABG PO2/FiO2 Ratio ABG HCO3 ABG O2 Saturation ABG O2 Content ABG Base Excess A-a Gradient Oxyhemoglobin Total Hemoglobin O2 Delivery Device O2 Liters/Min FiO2 Sodium 135 L Potassium 3.8 Chloride 105 Carbon Dioxide 20 L Anion Gap 10 BUN 11 Creatinine 0.48 L Estim Creat Clear Calc 80 Estimated GFR > 60 Glucose 259 H POC Capillary Glucose 248 H 240 H Hemoglobin A1c Calcium 9.5 Phosphorus Magnesium Total Bilirubin AST ALT Alkaline Phosphatase Total Protein Albumin Beta-Hydroxybutyrate/Acetoacetate Urine Color Urine Appearance Urine pH Ur Specific [place] Urine Protein Urine Glucose (UA) Urine Ketones Ur Blood (Man) Urine Nitrate Urine Bilirubin Urine Urobilinogen Leukocyte Esterase Rfl Urine RBC Urine WBC Ur Squamous Epith Cells Urine Bacteria Urine Casts Nasal MRSA (PCR) Urine Opiates Screen Urine Methadone Screen Ur Barbiturates Screen Ur Phencyclidine Scrn Ur Amphetamine Screen U Benzodiazepines Scrn Urine Cocaine Screen U Cannabinoids Screen Ethyl Alcohol Influenza A (RT-PCR) Influenza B (RT-PCR) RSV (RT-PCR) SARS-CoV-2 RNA (RT-PCR) 07/13/25 07/13/25 07/13/25 15:13 16:10 17:05 WBC RBC Hgb Hct MCV MCH MCHC RDW Plt Count MPV Immature Gran % (Auto) Neut % (Auto) Lymph % (Auto) [place] % (Auto) Eos % (Auto) Baso % (Auto) Lymph # (Auto) [place] # (Auto) Eos # (Auto) Baso # (Auto) Abs Immat Gran (auto) Absolute Neuts (auto) Absolute Nucleated RBC Nucleated RBC % Puncture Site ABG pH ABG pCO2 ABG pO2 ABG PO2/FiO2 Ratio ABG HCO3 ABG O2 Saturation ABG O2 Content ABG Base Excess A-a Gradient Oxyhemoglobin Total Hemoglobin O2 Delivery Device O2 Liters/Min FiO2 Sodium Potassium Chloride Carbon Dioxide Anion Gap BUN Creatinine Estim Creat Clear Calc Estimated GFR Glucose POC Capillary Glucose 222 H 268 H 259 H Hemoglobin A1c Calcium Phosphorus Magnesium Total Bilirubin AST ALT Alkaline Phosphatase Total Protein Albumin Beta-Hydroxybutyrate/Acetoacetate Urine Color Urine Appearance Urine pH Ur Specific [place] Urine Protein Urine Glucose (UA) Urine Ketones Ur Blood (Man) Urine Nitrate Urine Bilirubin Urine Urobilinogen Leukocyte Esterase Rfl Urine RBC Urine WBC Ur Squamous Epith Cells Urine Bacteria Urine Casts Nasal MRSA (PCR) Urine Opiates Screen Urine Methadone Screen Ur Barbiturates Screen Ur Phencyclidine Scrn Ur Amphetamine Screen U Benzodiazepines Scrn Urine Cocaine Screen U Cannabinoids Screen Ethyl Alcohol Influenza A (RT-PCR) Influenza B (RT-PCR) RSV (RT-PCR) SARS-CoV-2 RNA (RT-PCR) 07/13/25 07/13/25 07/13/25 17:46 18:02 19:02 WBC RBC Hgb Hct MCV MCH MCHC RDW Plt Count MPV Immature Gran % (Auto) Neut % (Auto) Lymph % (Auto) [place] % (Auto) Eos % (Auto) Baso % (Auto) Lymph # (Auto) [place] # (Auto) Eos # (Auto) Baso # (Auto) Abs Immat Gran (auto) Absolute Neuts (auto) Absolute Nucleated RBC Nucleated RBC % Puncture Site ABG pH ABG pCO2 ABG pO2 ABG PO2/FiO2 Ratio ABG HCO3 ABG O2 Saturation ABG O2 Content ABG Base Excess A-a Gradient Oxyhemoglobin Total Hemoglobin O2 Delivery Device O2 Liters/Min FiO2 Sodium Potassium Chloride Carbon Dioxide Anion Gap BUN Creatinine Estim Creat Clear Calc Estimated GFR Glucose POC Capillary Glucose 200 H 145 H Hemoglobin A1c Calcium Phosphorus Magnesium Total Bilirubin AST ALT Alkaline Phosphatase Total Protein Albumin Beta-Hydroxybutyrate/Acetoacetate Urine Color Urine Appearance Urine pH Ur Specific [place] Urine Protein Urine Glucose (UA) Urine Ketones Ur Blood (Man) Urine Nitrate Urine Bilirubin Urine Urobilinogen Leukocyte Esterase Rfl Urine RBC Urine WBC Ur Squamous Epith Cells Urine Bacteria Urine Casts Nasal MRSA (PCR) Not detected Urine Opiates Screen Urine Methadone Screen Ur Barbiturates Screen Ur Phencyclidine Scrn Ur Amphetamine Screen U Benzodiazepines Scrn Urine Cocaine Screen U Cannabinoids Screen Ethyl Alcohol Influenza A (RT-PCR) Influenza B (RT-PCR) RSV (RT-PCR) SARS-CoV-2 RNA (RT-PCR) 07/13/25 07/13/25 07/13/25 19:33 20:00 21:03 WBC RBC Hgb Hct MCV MCH MCHC RDW Plt Count MPV Immature Gran % (Auto) Neut % (Auto) Lymph % (Auto) [place] % (Auto) Eos % (Auto) Baso % (Auto) Lymph # (Auto) [place] # (Auto) Eos # (Auto) Baso # (Auto) Abs Immat Gran (auto) Absolute Neuts (auto) Absolute Nucleated RBC Nucleated RBC % Puncture Site ABG pH ABG pCO2 ABG pO2 ABG PO2/FiO2 Ratio ABG HCO3 ABG O2 Saturation ABG O2 Content ABG Base Excess A-a Gradient Oxyhemoglobin Total Hemoglobin O2 Delivery Device O2 Liters/Min FiO2 Sodium 136 L Potassium 4.0 Chloride 103 Carbon Dioxide 24 Anion Gap 9 BUN 7 Creatinine 0.38 L Estim Creat Clear Calc 98 Estimated GFR > 60 Glucose 154 H POC Capillary Glucose 168 H 226 H Hemoglobin A1c Calcium 9.2 Phosphorus Magnesium Total Bilirubin AST ALT Alkaline Phosphatase Total Protein Albumin Beta-Hydroxybutyrate/Acetoacetate Urine Color Urine Appearance Urine pH Ur Specific [place] Urine Protein Urine Glucose (UA) Urine Ketones Ur Blood (Man) Urine Nitrate Urine Bilirubin Urine Urobilinogen Leukocyte Esterase Rfl Urine RBC Urine WBC Ur Squamous Epith Cells Urine Bacteria Urine Casts Nasal MRSA (PCR) Urine Opiates Screen Urine Methadone Screen Ur Barbiturates Screen Ur Phencyclidine Scrn Ur Amphetamine Screen U Benzodiazepines Scrn Urine Cocaine Screen U Cannabinoids Screen Ethyl Alcohol Influenza A (RT-PCR) Influenza B (RT-PCR) RSV (RT-PCR) SARS-CoV-2 RNA (RT-PCR) 07/14/25 07/14/25 07/14/25 00:02 04:01 05:04 WBC 7.9 RBC 4.48 Hgb 13.6 Hct 41.6 MCV 92.9 MCH 30.4 MCHC 32.7 RDW 13.0 Plt Count 230 MPV 10.9 H Immature Gran % (Auto) 0.4 Neut % (Auto) 57.6 Lymph % (Auto) 29.8 [place] % (Auto) 6.2 Eos % (Auto) 5.4 H Baso % (Auto) 0.6 Lymph # (Auto) 2.34 [place] # (Auto) 0.5 Eos # (Auto) 0.4 H Baso # (Auto) 0.1 Abs Immat Gran (auto) 0.03 Absolute Neuts (auto) 4.5 Absolute Nucleated RBC 0.000 Nucleated RBC % 0.0 Puncture Site ABG pH ABG pCO2 ABG pO2 ABG PO2/FiO2 Ratio ABG HCO3 ABG O2 Saturation ABG O2 Content ABG Base Excess A-a Gradient Oxyhemoglobin Total Hemoglobin O2 Delivery Device O2 Liters/Min FiO2 Sodium 137 Potassium 4.0 Chloride 104 Carbon Dioxide 25 Anion Gap 8 BUN 6 L Creatinine 0.44 L Estim Creat Clear Calc 86 Estimated GFR > 60 Glucose 132 H POC Capillary Glucose 224 H 129 H Hemoglobin A1c Calcium 9.0 Phosphorus Magnesium 2.0 Total Bilirubin 0.6 AST 20 ALT 18 Alkaline Phosphatase 114 Total Protein 7.0 Albumin 3.9 Beta-Hydroxybutyrate/Acetoacetate Urine Color Urine Appearance Urine pH Ur Specific [place] Urine Protein Urine Glucose (UA) Urine Ketones Ur Blood (Man) Urine Nitrate Urine Bilirubin Urine Urobilinogen Leukocyte Esterase Rfl Urine RBC Urine WBC Ur Squamous Epith Cells Urine Bacteria Urine Casts Nasal MRSA (PCR) Urine Opiates Screen Urine Methadone Screen Ur Barbiturates Screen Ur Phencyclidine Scrn Ur Amphetamine Screen U Benzodiazepines Scrn Urine Cocaine Screen U Cannabinoids Screen Ethyl Alcohol Influenza A (RT-PCR) Influenza B (RT-PCR) RSV (RT-PCR) SARS-CoV-2 RNA (RT-PCR) 07/14/25 07:53 WBC RBC Hgb Hct MCV MCH MCHC RDW Plt Count MPV Immature Gran % (Auto) Neut % (Auto) Lymph % (Auto) [place] % (Auto) Eos % (Auto) Baso % (Auto) Lymph # (Auto) [place] # (Auto) Eos # (Auto) Baso # (Auto) Abs Immat Gran (auto) Absolute Neuts (auto) Absolute Nucleated RBC Nucleated RBC % Puncture Site ABG pH ABG pCO2 ABG pO2 ABG PO2/FiO2 Ratio ABG HCO3 ABG O2 Saturation ABG O2 Content ABG Base Excess A-a Gradient Oxyhemoglobin Total Hemoglobin O2 Delivery Device O2 Liters/Min FiO2 Sodium Potassium Chloride Carbon Dioxide Anion Gap BUN Creatinine Estim Creat Clear Calc Estimated GFR Glucose POC Capillary Glucose 203 H Hemoglobin A1c Calcium Phosphorus Magnesium Total Bilirubin AST ALT Alkaline Phosphatase Total Protein Albumin Beta-Hydroxybutyrate/Acetoacetate Urine Color Urine Appearance Urine pH Ur Specific [place] Urine Protein Urine Glucose (UA) Urine Ketones Ur Blood (Man) Urine Nitrate Urine Bilirubin Urine Urobilinogen Leukocyte Esterase Rfl Urine RBC Urine WBC Ur Squamous Epith Cells Urine Bacteria Urine Casts Nasal MRSA (PCR) Urine Opiates Screen Urine Methadone Screen Ur Barbiturates Screen Ur Phencyclidine Scrn Ur Amphetamine Screen U Benzodiazepines Scrn Urine Cocaine Screen U Cannabinoids Screen Ethyl Alcohol Influenza A (RT-PCR) Influenza B (RT-PCR) RSV (RT-PCR) SARS-CoV-2 RNA (RT-PCR) Quality VTE Prophylaxis VTE prophylaxis: mechanical ordered
[2025-07-14] MEDS: LOSARTAN POTASSIUM 25 MG TABLET PO (09:34)
[2025-07-14] MEDS: ASPIRIN 81 MG ENTERIC TABLET PO (09:34)
--- NOTE | 2025-07-14 10:46 | P.PNCROSS_ITS ---
Event Note Event Note Event Note: MRI reviewed with Neurology shows acute to early subacute infarct in the left c entral pernell. Results discussed with the patient who had hard time believing that she had a stroke. I discussed further treatment plan including consult neurology and assessment by speech therapy PT and OT. Will also check carotid Dopplers. Patient questioning why she has to take statin. Her FLP was not checked because patient was not NPO and ate her meal. I have ordered FFP for tomorrow but explained the reasoning for statin in a patient with diabetes and CVA. Patient is still adamant and would like to be discharged and I have explained the results and treatment findings. She does not have a PCP. I have requested nurse healthcare manager to provide patient with says options that she can call to set up an appointment once discharged. She is threatening to leave AMA. I have explained the risks of leaving against medical advice. This could be making her blood glucose and hypertension worse which will put her at risk for further complications like recurrent DKA, hypertensives complications including a repeat stroke and could be even life-threatening and lead to . Patient verbalized understanding and is going to think about it but is still thinking about leaving AMA.
--- NOTE | 2025-07-14 12:25 | PCSTNOTE ---
Please refer to the Bedside Swallow Evaluation in the EMR. Please note, silent aspiration cannot be ruled out at bedside.
--- NOTE | 2025-07-14 13:36 | PC.NURSE ---
This patient, Liss Blood, was transferred to [facility] on 07/14/25 at 1330. Personal belongings sent with patient. Report given to TERESITA SIM. Appropriate documentation sent with patient.
--- NOTE | 2025-07-14 13:53 | PC.NURSE ---
This patient, Liss Blood, was received from ICU 7 on 07/14/25 at 1353. Patient/family oriented to unit policies and routines.
--- NOTE | 2025-07-14 15:36 | PCPTNOTE ---
Attempted PT evaluation, pt declined stating she feels like her current mobility is like her baseline mobility. Pt found finishing a shower she did independently per nursing. Nursing aware. Hospitalist aware. Please re-order if pt become agreeable to therapy evaluation.
--- NOTE | 2025-07-14 15:51 | PCOTNOTE ---
Pt declines working with therapy and reports completing shower independently in room. No therapy needs and per Dr. Austin tate to d/c orders.
[2025-07-14] MEDS: levoFLOXacin 750 MG/D5W 150 ML 750 MG/150 ML BAG 100 MG IVPB (18:18)
[2025-07-14] MEDS: INSULIN GLARGINE (*BKC) 100 UNITS/ML 15 UNITS SUB-Q (21:19)
[2025-07-15] VITALS: PULSE 65
[2025-07-15 04:00] VITALS: PULSE 66
[2025-07-15 05:22] VITALS: BP 145/64; PULSE 72; RESP 16; TEMP 36.1; O2SAT 100
[2025-07-15 05:43] LABS: Hematocrit 41.8 % (37.0-47.0); Hemoglobin 13.5 g/dL (12.0-15.0); Immature Granulocyte Percent A 0.5 % (0-0.5); Lymphocytes Absolute Auto 2.14 K/mm3 (0.9-3.2); Mean Corpuscular HGB Conc 32.3 g/dl (32-36); Mean Corpuscular Hemoglobin 29.9 pg (26-34); Mean Corpuscular Volume 92.5 fl (80-100); Nucleated Red Blood Cells Absolute Auto 0.000 K/mm3 (0.0-0.012); Nucleated Red Blood Cells Perc 0.0 % (0.0-0.2); Platelet Count Result 225 k/mm3 (150-375); Red Blood Count 4.52 M/mm3 (4.2-5.4); White Blood Count 6.2 K/mm3 (4.5-10.0)
[2025-07-15 06:21] LABS: Alanine Aminotransferase 19 U/L (6-35); Albumin Level 3.8 g/dL (3.5-5.1); Alkaline Phosphatase 101 U/L (38-126); Anion Gap 7 mmol/L (4-12); Aspartate Amino Transferase 22 U/L (14-36); Bilirubin,Total 0.6 mg/dL (0.2-1.3); Blood Urea Nitrogen 8 mg/dL (7-17); Calcium 9.2 mg/dL (8.4-10.2); Carbon Dioxide 22 mmol/L (22-30); Chloride 106 mmol/L (98-107); Estimated CRCL calculation 84 ml/min; Estimated Glomerular Filt Rate > 60; Glucose 130 mg/dL (65-110); HDL Direct 33 mg/dL; Magnesium 1.9 mg/dL (1.6-2.3); Potassium 3.9 mmol/L (3.4-5.0); Sodium 135 mmol/L (137-145); Total Protein 7.0 g/dL (6.3-8.2)
[2025-07-15 06:24] LABS: Cholesterol 360 mg/dL (0-200); Triglycerides 595 mg/dL (<150)
[2025-07-15 09:00] VITALS: PULSE 72; O2SAT 100
[2025-07-15] MEDS: ASPIRIN 81 MG ENTERIC TABLET PO (09:00)
[2025-07-15] MEDS: LOSARTAN POTASSIUM 25 MG TABLET PO (09:00)
[2025-07-15] MEDS: ATORVASTATIN 40 MG TABLET PO (09:00)
--- NOTE | 2025-07-15 12:02 | PM.IMPN ---
Progress Note: A&P Assessment and Plan (1) DKA (diabetic ketoacidosis): Code(s): E11.10 - Type 2 diabetes mellitus with ketoacidosis without coma Status: Acute Assessment and Plan: Patient presented with elevated blood sugar and slightly elevated beta hydroxybutyrate. Her anion gap is normal. She is in mild DKA Pt was given IVF bolus and started on insulin infusion Serial labs were ordered and monitored Pt now transitioned to SC insulin now Pt tolerating diet now Consult extension educator and dietitian Pending Start Metformin I spoke to patient regarding management options for diabetes mellitus including basal insulin, oral medications and other injectable drugs. (2) Dizziness: Code(s): R42 - Dizziness and giddiness Status: Acute Assessment and Plan: Patient presented with dizziness which could be secondary to hyperglycemia, DKA or elevated blood pressure. Other possibilities TIA or hypertensive encephalopathy She is currently asymptomatic Neuro exam is intact Head CT is negative Pending MRI brain alarm security or surveillance monitor ECHO Summary 1. Complete two-dimensional, color flow and Doppler transthoracic echocardiogram is performed. 2. Left ventricular chamber dimension is normal. 3. Left ventricular systolic function is normal, estimated at 60-65. 4. There is mild concentric increased left ventricular wall thickness. 5. The left ventricular diastolic function is grade I diastolic dysfunction. 6. E/e' 8 is minimally elevated. 7. The aortic valve is not well visualized. Cannot determine number of aortic valve leaflets. 8. There is moderate aortic valve sclerosis. 9. There is mild aortic valve stenosis with a peak velocity of 206 cm/s, mean gradient of 9 mmHg, and aortic valve area of 1.7 cm2. (3) Uncontrolled hypertension: Code(s): I10 - Essential (primary) hypertension Status: Acute Assessment and Plan: Current blood pressure systolic to 205. Improvng Continue P.r.n. labetalol COntinue p.o. losartan and Norvasc (4) Tobacco abuse counseling: Code(s): Z71.6 - Tobacco abuse counseling Status: Acute Assessment and Plan: Pt was counseled and encouraged to quit smoking and cut down on alcohol intake. Plan DVT prophylaxis - SCD Nutrition - CC Diet Code Status - Full Code Transfer out of ICU today Results of Echo discussed with pt and her family. Other results and plan discussed for today Subjective Date/time seen: 07/15/25 12:02 Review of Systems Review of Systems: All other systems were reviewed and negative except as noted in the HPi above All systems reviewed & are unremarkable except as noted in HPI and below (HPI) Exam Narrative: General: Pt is alert awake and in NAD Lungs/Chest: Trachea central Clear BS B/L, No crackles or wheezing. Cardiac: RRR. Normal S1 S2. No murmurs Circulation: Pedal pulses are intact and symmetrical. Abdomen: Normal bowel sounds.. Soft. NT. ND. Extremities: No clubbing, cyanosis or edema. Warm : NAD Neurologic: Follows commands. AO x3 Moves all 4 extremities PERRL muscle strength is symmetric in all 4 extremities, sensation to touch intact, cranial nerves 2-12 intact, no facial asymmetry, speech normal, no focal neurological deficit heparin Skin: No Rash Const: Other: General: alert and comfortable Eyes: EOMI, PERRLA ENNT External ears normal, Neck is supple, no masses, Respiratory systems: Clear to auscultation Cardiovascular S1, S2, normal rhythm, no murmur, rub, or gallop; no thrill or palpable murmurs on palpation. Gastrointestinal: soft, non-tender, and non-distended abdomen with no masses; BS present Skin: no rash, lesions, ulcerations, subcutaneous nodules or induration Musculoskeletal: no abnormality and no tenderness, normal ROM Neurologic: Alert and oriented x3, non focal Mental Status Exam: normal affect Objective Data Vital Signs Vital Signs: Vital Signs - 24 hr 07/14/25 16:00 07/14/25 20:00 07/14/25 20:00 Temperature Pulse Rate 97 92 Respiratory Rate Blood Pressure Pulse Oximetry Oxygen Delivery Room Air 07/14/25 21:10 07/15/25 00:00 07/15/25 04:00 Temperature 97.6 F Pulse Rate 78 65 66 Respiratory Rate 16 Blood Pressure 149/80 H Pulse Oximetry 98 Oxygen Delivery 07/15/25 05:22 Temperature 97 F L Pulse Rate 72 Respiratory Rate 16 Blood Pressure 145/64 H Pulse Oximetry 100 Oxygen Delivery Intake/Output Intake/Output: Intake & Output 07/12/25 07/13/25 07/14/25 07/15/25 23:59 23:59 23:59 23:59 Intake Total 2738.5 1480 2049 Balance 2738.5 1480 2049 Meds/Results Medications: Active Medications Generic Name Dose Route Start Last Admin Trade Name Freq PRN Reason Stop Dose Admin Amlodipine Besylate 5 mg 07/13/25 14:10 07/15/25 09:01 Amlodipine Besylate 5 Mg Tablet PO 5 mg DAILY DESTINEY Administration Aspirin 81 mg 07/15/25 09:00 07/15/25 09:00 Aspirin 81 Mg Enteric Tablet PO 81 mg QAM DESTINEY Administration Atorvastatin Calcium 40 mg 07/14/25 09:00 07/15/25 09:00 Atorvastatin 40 Mg Tablet PO 40 mg DAILY DESTINEY Administration Dextrose 12.5 gm 07/13/25 12:27 Dextrose 50% 25 Gm/50 Ml Syringe IV PUSH PRN PRN Hypoglycemia Protocol Glucagon 1 mg 07/13/25 12:27 Glucagon For Inj 1 Mg Vial IM PRN PRN Hypoglycemia Protocol Glucose 15 gm 07/13/25 12:27 Glucose Oral Gel 15 Gm Of Glucse In 37.5 Gm Tube PO PRN PRN Hypoglycemia Protocol Dextrose 1,000 mls @ 100 mls/hr 07/13/25 12:27 Dextrose 5% 1,000 Ml IVPB PRN PRN Hypoglycemia Protocol Levofloxacin/Dextrose 750 mg in 150 mls @ 100 mls/hr 07/13/25 19:00 07/14/25 18:18 Levaquin 750 Mg/D5w 150 Ml IVPB 100 mls/hr Q24H DESTINEY Administration Insulin Aspart 3 - 6 units 07/14/25 11:30 07/15/25 08:59 Insulin Aspart (*Bkc) 100 Units/Ml SUB-Q Not Given ACHS DESTINEY Protocol Insulin Glargine 15 units 07/14/25 21:00 07/14/25 21:19 Insulin Glargine (*Bkc) 100 Units/Ml SUB-Q 15 units HS DESTINEY Administration Labetalol HCl 20 mg 07/13/25 14:04 07/13/25 14:14 Labetalol Hcl Inj 100 Mg/20 Ml Vial IV PUSH 20 mg Q4H PRN Administration SBP > 180 and HR>60-1st choice Losartan Potassium 25 mg 07/13/25 14:05 07/15/25 09:00 Losartan Potassium 25 Mg Tablet PO 25 mg DAILY DESTINEY Administration Metformin HCl 500 mg 07/14/25 08:00 07/15/25 09:01 Metformin Hcl 500 Mg Tablet PO 500 mg BIDWM DESTINEY Administration Perflutren Lipid Microsphere 0 ml 07/13/25 14:04 Perflutren Lipid Microspheres 1.5 Ml Vial Diluted To 10 Ml Total Volume IV PUSH 07/16/25 14:04 ONCE PRN adequate visualization Protocol Radiology Results: ITS Impressions Head CT 07/13/25 12:36 IMPRESSION: 1. No acute intracranial hemorrhage. No mass effect. Chest X-Ray 07/13/25 12:48 IMPRESSION: 1: Small opacities in the mid and lower lungs which represents atelectasis/scarring or infiltrates. Brain MRI 07/14/25 10:02 IMPRESSION: 1. 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 Head/Neck CTA 07/14/25 19:10 IMPRESSION: 1: No significant vascular abnormality of the head or neck. 2: No acute intracranial abnormality. Labs Labs: Laboratory Results - last 24 hr 07/14/25 07/14/25 07/14/25 12:12 16:58 21:11 WBC RBC Hgb Hct MCV MCH MCHC RDW Plt Count MPV Immature Gran % (Auto) Neut % (Auto) Lymph % (Auto) [place] % (Auto) Eos % (Auto) Baso % (Auto) Lymph # (Auto) [place] # (Auto) Eos # (Auto) Baso # (Auto) Abs Immat Gran (auto) Absolute Neuts (auto) Absolute Nucleated RBC Nucleated RBC % Sodium Potassium Chloride Carbon Dioxide Anion Gap BUN Creatinine Estim Creat Clear Calc Estimated GFR Glucose POC Capillary Glucose 275 H 217 H 247 H Calcium Magnesium Total Bilirubin AST ALT Alkaline Phosphatase Total Protein Albumin Triglycerides Cholesterol LDL Cholesterol Direct HDL Direct 07/15/25 07/15/25 07/15/25 05:30 07:34 11:41 WBC 6.2 RBC 4.52 Hgb 13.5 Hct 41.8 MCV 92.5 MCH 29.9 MCHC 32.3 RDW 13.1 Plt Count 225 MPV 10.5 H Immature Gran % (Auto) 0.5 Neut % (Auto) 51.0 Lymph % (Auto) 34.6 [place] % (Auto) 5.8 Eos % (Auto) 7.3 H Baso % (Auto) 0.8 Lymph # (Auto) 2.14 [place] # (Auto) 0.4 Eos # (Auto) 0.5 H Baso # (Auto) 0.1 Abs Immat Gran (auto) 0.03 Absolute Neuts (auto) 3.2 Absolute Nucleated RBC 0.000 Nucleated RBC % 0.0 Sodium 135 L Potassium 3.9 Chloride 106 Carbon Dioxide 22 Anion Gap 7 BUN 8 Creatinine 0.52 L Estim Creat Clear Calc 84 Estimated GFR > 60 Glucose 130 H POC Capillary Glucose 183 H 229 H Calcium 9.2 Magnesium 1.9 Total Bilirubin 0.6 AST 22 ALT 19 Alkaline Phosphatase 101 Total Protein 7.0 Albumin 3.8 Triglycerides 595 H Cholesterol 360 H LDL Cholesterol Direct 125 HDL Direct 33 Quality VTE Prophylaxis VTE prophylaxis: mechanical ordered
--- NOTE | 2025-07-15 12:02 | PM.IMPN ---
Progress Note: A&P Assessment and Plan (1) DKA (diabetic ketoacidosis): Code(s): E11.10 - Type 2 diabetes mellitus with ketoacidosis without coma Status: Acute Assessment and Plan: S/p IVF and insulin infusion Now on sq regimen and metformin monitor (2) Dizziness: Code(s): R42 - Dizziness and giddiness Status: Acute Assessment and Plan: Patient presented with dizziness which could be secondary to hyperglycemia, DKA or elevated blood pressure. Other possibilities TIA or hypertensive encephalopathy She is currently asymptomatic Neuro exam is intact Head CT is negative MRI brain showed pontine stroke ECHO showed EF 60-65% with grade I diastolic dysfunction gambling monitor symptoms resolved (3) Uncontrolled hypertension: Code(s): I10 - Essential (primary) hypertension Status: Acute Assessment and Plan: SBO on admission 205, today BP 145/64 Continue p.o. losartan and Norvasc monitor (4) Tobacco abuse counseling: Code(s): Z71.6 - Tobacco abuse counseling Status: Acute Assessment and Plan: Pt was counseled and encouraged to quit smoking and cut down on alcohol intake. Plan Acute stroke MRI showed pontine stroke ECHO with normal EF A1c 11.5, and LDL 125 Continue Aspirin and Lipitor awaiting neurology eval PT/OT/ST following DVT prophylaxis - Sq Lovenox Code Status - Full Code Subjective Date/time seen: 07/15/25 12:02 Interval history: Comfortable at bedside Awaiting neurology eval for placement Review of Systems Review of Systems: All other systems were reviewed and negative except as noted in the HPi above All systems reviewed & are unremarkable except as noted in HPI and below (HPI) Exam Narrative: General: Pt is alert awake and in NAD Lungs/Chest: Trachea central Clear BS B/L, No crackles or wheezing. Cardiac: RRR. Normal S1 S2. No murmurs Circulation: Pedal pulses are intact and symmetrical. Abdomen: Normal bowel sounds.. Soft. NT. ND. Extremities: No clubbing, cyanosis or edema. Warm : NAD Neurologic: Follows commands. AO x3 Moves all 4 extremities PERRL muscle strength is symmetric in all 4 extremities, sensation to touch intact, cranial nerves 2-12 intact, no facial asymmetry, speech normal, no focal neurological deficit heparin Skin: No Rash Const: Other: General: alert and comfortable Eyes: EOMI, PERRLA ENNT External ears normal, Neck is supple, no masses, Respiratory systems: Clear to auscultation Cardiovascular S1, S2, normal rhythm, no murmur, rub, or gallop; no thrill or palpable murmurs on palpation. Gastrointestinal: soft, non-tender, and non-distended abdomen with no masses; BS present Skin: no rash, lesions, ulcerations, subcutaneous nodules or induration Musculoskeletal: no abnormality and no tenderness, normal ROM Neurologic: Alert and oriented x3, non focal Mental Status Exam: normal affect Objective Data Vital Signs Vital Signs: Vital Signs - 24 hr 07/14/25 16:00 07/14/25 20:00 07/14/25 20:00 Temperature Pulse Rate 97 92 Respiratory Rate Blood Pressure Pulse Oximetry Oxygen Delivery Room Air 07/14/25 21:10 07/15/25 00:00 07/15/25 04:00 Temperature 97.6 F Pulse Rate 78 65 66 Respiratory Rate 16 Blood Pressure 149/80 H Pulse Oximetry 98 Oxygen Delivery 07/15/25 05:22 Temperature 97 F L Pulse Rate 72 Respiratory Rate 16 Blood Pressure 145/64 H Pulse Oximetry 100 Oxygen Delivery Intake/Output Intake/Output: Intake & Output 07/12/25 07/13/25 07/14/25 07/15/25 23:59 23:59 23:59 23:59 Intake Total 2738.5 1480 2050 Balance 2738.5 1480 2050 Meds/Results Medications: Active Medications Generic Name Dose Route Start Last Admin Trade Name Freq PRN Reason Stop Dose Admin Amlodipine Besylate 5 mg 07/13/25 14:10 07/15/25 09:01 Amlodipine Besylate 5 Mg Tablet PO 5 mg DAILY DESTINEY Administration Aspirin 81 mg 07/15/25 09:00 07/15/25 09:00 Aspirin 81 Mg Enteric Tablet PO 81 mg QAM DESTINEY Administration Atorvastatin Calcium 40 mg 07/14/25 09:00 07/15/25 09:00 Atorvastatin 40 Mg Tablet PO 40 mg DAILY DESTINEY Administration Dextrose 12.5 gm 07/13/25 12:27 Dextrose 50% 25 Gm/50 Ml Syringe IV PUSH PRN PRN Hypoglycemia Protocol Glucagon 1 mg 07/13/25 12:27 Glucagon For Inj 1 Mg Vial IM PRN PRN Hypoglycemia Protocol Glucose 15 gm 07/13/25 12:27 Glucose Oral Gel 15 Gm Of Glucse In 37.5 Gm Tube PO PRN PRN Hypoglycemia Protocol Dextrose 1,000 mls @ 100 mls/hr 07/13/25 12:27 Dextrose 5% 1,000 Ml IVPB PRN PRN Hypoglycemia Protocol Levofloxacin/Dextrose 750 mg in 150 mls @ 100 mls/hr 07/13/25 19:00 07/14/25 18:18 Levaquin 750 Mg/D5w 150 Ml IVPB 100 mls/hr Q24H DESTINEY Administration Insulin Aspart 3 - 6 units 07/14/25 11:30 07/15/25 08:59 Insulin Aspart (*Bkc) 100 Units/Ml SUB-Q Not Given ACHS DESTINEY Protocol Insulin Glargine 15 units 07/14/25 21:00 07/14/25 21:19 Insulin Glargine (*Bkc) 100 Units/Ml SUB-Q 15 units HS DESTINEY Administration Labetalol HCl 20 mg 07/13/25 14:04 07/13/25 14:14 Labetalol Hcl Inj 100 Mg/20 Ml Vial IV PUSH 20 mg Q4H PRN Administration SBP > 180 and HR>60-1st choice Losartan Potassium 25 mg 07/13/25 14:05 07/15/25 09:00 Losartan Potassium 25 Mg Tablet PO 25 mg DAILY DESTINEY Administration Metformin HCl 500 mg 07/14/25 08:00 07/15/25 09:01 Metformin Hcl 500 Mg Tablet PO 500 mg BIDWM DESTINEY Administration Perflutren Lipid Microsphere 0 ml 07/13/25 14:04 Perflutren Lipid Microspheres 1.5 Ml Vial Diluted To 10 Ml Total Volume IV PUSH 07/16/25 14:04 ONCE PRN adequate visualization Protocol Radiology Results: ITS Impressions Head CT 07/13/25 12:36 IMPRESSION: 1. No acute intracranial hemorrhage. No mass effect. Chest X-Ray 07/13/25 12:48 IMPRESSION: 1: Small opacities in the mid and lower lungs which represents atelectasis/scarring or infiltrates. Brain MRI 07/14/25 10:02 IMPRESSION: 1. 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 Head/Neck CTA 07/14/25 19:10 IMPRESSION: 1: No significant vascular abnormality of the head or neck. 2: No acute intracranial abnormality. Labs Labs: Laboratory Results - last 24 hr 07/14/25 07/14/25 07/14/25 12:12 16:58 21:11 WBC RBC Hgb Hct MCV MCH MCHC RDW Plt Count MPV Immature Gran % (Auto) Neut % (Auto) Lymph % (Auto) [place] % (Auto) Eos % (Auto) Baso % (Auto) Lymph # (Auto) [place] # (Auto) Eos # (Auto) Baso # (Auto) Abs Immat Gran (auto) Absolute Neuts (auto) Absolute Nucleated RBC Nucleated RBC % Sodium Potassium Chloride Carbon Dioxide Anion Gap BUN Creatinine Estim Creat Clear Calc Estimated GFR Glucose POC Capillary Glucose 275 H 217 H 247 H Calcium Magnesium Total Bilirubin AST ALT Alkaline Phosphatase Total Protein Albumin Triglycerides Cholesterol LDL Cholesterol Direct HDL Direct 07/15/25 07/15/25 07/15/25 05:30 07:34 11:41 WBC 6.2 RBC 4.52 Hgb 13.5 Hct 41.8 MCV 92.5 MCH 29.9 MCHC 32.3 RDW 13.1 Plt Count 225 MPV 10.5 H Immature Gran % (Auto) 0.5 Neut % (Auto) 51.0 Lymph % (Auto) 34.6 Pierce % (Auto) 5.8 Eos % (Auto) 7.3 H Baso % (Auto) 0.8 Lymph # (Auto) 2.14 [place] # (Auto) 0.4 Eos # (Auto) 0.5 H Baso # (Auto) 0.1 Abs Immat Gran (auto) 0.03 Absolute Neuts (auto) 3.2 Absolute Nucleated RBC 0.000 Nucleated RBC % 0.0 Sodium 135 L Potassium 3.9 Chloride 106 Carbon Dioxide 22 Anion Gap 7 BUN 8 Creatinine 0.52 L Estim Creat Clear Calc 84 Estimated GFR > 60 Glucose 130 H POC Capillary Glucose 183 H 229 H Calcium 9.2 Magnesium 1.9 Total Bilirubin 0.6 AST 22 ALT 19 Alkaline Phosphatase 101 Total Protein 7.0 Albumin 3.8 Triglycerides 595 H Cholesterol 360 H LDL Cholesterol Direct 125 HDL Direct 33 Quality VTE Prophylaxis VTE prophylaxis: mechanical ordered
[2025-07-15] MEDS: INSULIN ASPART (*BKC) 100 UNITS/ML SUB-Q (13:15)
[2025-07-15] MEDS: ENOXAPARIN 40 MG/0.4 ML SYRINGE SUB-Q (14:14)
--- NOTE | 2025-07-15 15:55 | PM.DS ---
DS: Admitting Diagnosis Discharge Date 07/16/25 Admitting Diagnosis Slurred speech and dizziness DS: Discharge Diagnosis Discharge Diagnosis (1) Stroke: Code(s): I63.9 - Cerebral infarction, unspecified Status: Acute DS: Summary Hospital Course Hospital Course: Slurred speech and dizziness Narrative: 60 yo female with no significant PMH, who presented to the ER on account of slurred speech and dizziness which started about 730 am. noted her speech was slurred and noticed an unstable gait. However symptoms have resolved at the time of this encounter. Patinet denies any chest pain, and pain, vomiting, focal weakness/deficits, dysuria and no diarrhea. Er eval BP 202/93, labs notable for BG 501, A1c 11.5 CT head unremarkable. Critical care was consulted prior to admission. MRI showed acute pontine stroke, LDL 125 and A1c 11.5, she was started on Aspirin and Lipitor. Neurology was consulted and evaluated patient and recommended continuing Aspirin and Lipitor and will follow up outpatient. ECHO showed normal LVF. PT/OT/ST evaluated adn patient has no needs. Slurred speech and dizziness resolved Also managed for DKA, resolved with IVF and insulin infusion. Blood sugar controlled on Sq regimen. discharged Lantus 15 units and Premeal insulin along with Metformin. Also managed for hypertensive emergency, now controlled on Losartan 25mg and Amlodipine 5mg daily. F/u with PCP in 3-5 days, f/u with Neurology as instructed. Time Spent with Patient Time attestation: Total time spent providing and/or coordinating discharge services: DS: Data Data Completed and Pending Labs on day of discharge: Labs from last 24 hours 07/15/25 07/15/25 07/15/25 11:41 07:34 05:30 WBC 6.2 RBC 4.52 Hgb 13.5 Hct 41.8 MCV 92.5 MCH 29.9 MCHC 32.3 RDW 13.1 Plt Count 225 MPV 10.5 H Immature Gran % (Auto) 0.5 Neut % (Auto) 51.0 Lymph % (Auto) 34.6 [place] % (Auto) 5.8 Eos % (Auto) 7.3 H Baso % (Auto) 0.8 Lymph # (Auto) 2.14 [place] # (Auto) 0.4 Eos # (Auto) 0.5 H Baso # (Auto) 0.1 Abs Immat Gran (auto) 0.03 Absolute Neuts (auto) 3.2 Absolute Nucleated RBC 0.000 Nucleated RBC % 0.0 Sodium 135 L Potassium 3.9 Chloride 106 Carbon Dioxide 22 Anion Gap 7 BUN 8 Creatinine 0.52 L Estim Creat Clear Calc 84 Estimated GFR > 60 Glucose 130 H POC Capillary Glucose 229 H 183 H Calcium 9.2 Magnesium 1.9 Total Bilirubin 0.6 AST 22 ALT 19 Alkaline Phosphatase 101 Total Protein 7.0 Albumin 3.8 Triglycerides 595 H Cholesterol 360 H LDL Cholesterol Direct 125 HDL Direct 33 07/14/25 07/14/25 21:11 16:58 WBC RBC Hgb Hct MCV MCH MCHC RDW Plt Count MPV Immature Gran % (Auto) Neut % (Auto) Lymph % (Auto) [place] % (Auto) Eos % (Auto) Baso % (Auto) Lymph # (Auto) [place] # (Auto) Eos # (Auto) Baso # (Auto) Abs Immat Gran (auto) Absolute Neuts (auto) Absolute Nucleated RBC Nucleated RBC % Sodium Potassium Chloride Carbon Dioxide Anion Gap BUN Creatinine Estim Creat Clear Calc Estimated GFR Glucose POC Capillary Glucose 247 H 217 H Calcium Magnesium Total Bilirubin AST ALT Alkaline Phosphatase Total Protein Albumin Triglycerides Cholesterol LDL Cholesterol Direct HDL Direct Discharge Plan Discharge Attending physician on discharge: Amelia Avila Consulting providers: Oli Posada; Tiffany Carlos Discharging Clinician: Amelia Avila Anticipated Discharge Date/Time: 07/15/25 15:42 Patient Disposition: Home Activity: as tolerated Diet: as tolerated, heart healthy and diabetic Patient Instructions: Antibiotic Form, Stroke (GEN) Patient Language: Bol[place]ian Stand Alone Forms: General Discharge Information Follow-up/Referrals: Tiffany Carlos MD [Physician, Neurology] Referral Note: F/u with neurology as instructed PHYSICIAN,RECEIVING TELLER [Primary Care Provider, Internal Medicine] Referral Note: F/u with PCP in 3-5 days Oli Posada MD [Physician, Family Practice] Referral Note: F/u with PCP in 3-5 days Discharge Medications: New amlodipine [Norvasc] 5 mg Tablet 5 mg PO DAILY 30 Days Qty: 30 1RF aspirin 81 mg Tablet,Delayed Release (Dr/Ec) 81 mg PO QAM 30 Days Qty: 30 1RF atorvastatin 40 mg Tablet 40 mg PO DAILY 30 Days Qty: 30 1RF losartan 25 mg Tablet 25 mg PO DAILY 30 Days Qty: 30 1RF fenofibrate nanocrystallized 145 mg Tablet 145 mg PO QAM 30 Days Qty: 30 1RF metformin 500 mg tablet 500 mg PO BID 30 Days Qty: 60 1RF insulin glargine [Lantus Solostar U-100 Insulin] 100 unit/mL (3 mL) insulin pen 15 unit subcut QHS Qty: 15 0RF Humalog KwikPen Insulin 200 unit/mL (3 mL) insulin pen 5 unit subcut TIDWMEAL 30 Days Qty: 6 1RF (DME) blood-glucose meter [OneTouch Verio Flex meter] Mis Qty: 1 0RF Rx Instructions: May substitute to in-stock meter and/or covered by insurance. Use As Directed (DME) OneTouch Verio test strips Strip Qty: 1 0RF Rx Instructions: May substitute to in-stock and/or covered by insurance strips. Use As Directed (DME) pen needle, diabetic 32 gauge x 5/32 Needle Qty: 1 1RF Rx Instructions: three times per day (DME) lancets [OneTouch Delica Plus Lancet] [facility] Q[facility]: 1 0RF Rx Instructions: May substitute to in-stock and/or covered by insurance lancets. Use As Directed Date of admission: 07/13/25 14:08 Primary Care Provider: PHYSICIAN,RECEIVING TELLER Admitting Provider: Amelia Avila Attending physician on admission: Amelia Avila Condition: Improved
--- NOTE | 2025-07-15 16:53 | P.CONNEU_ITS ---
Assessment and Plan Assessment and plan (1) Brainstem infarct, acute: Code(s): I63.89 - Other cerebral infarction Status: Acute (2) Uncontrolled hypertension: Code(s): I10 - Essential (primary) hypertension Status: Acute (3) DKA (diabetic ketoacidosis): Code(s): E11.10 - Type 2 diabetes mellitus with ketoacidosis without coma Status: Acute (4) Dizziness: Code(s): R42 - Dizziness and giddiness Status: Acute (5) Tobacco abuse counseling: Code(s): Z71.6 - Tobacco abuse counseling Status: Acute Plan Patient was noted to have a pontine infarct to the left of the midline however she does not have any clinical findings to go with that. LDL was fairly high at 125 and she is on atorvastatin 40 mg a day. She is also on aspirin 81 mg a day. I agree with these steps. Her blood pressure and serum glucose need to be closely monitored. She does not have any family physician and she needs to establish with 1 as soon as possible. She should continue the above medications if there is any further stroke-like symptoms he must present to the nearest emergency room as soon as possible. I have given her some scenarios where it can be an issue. With diabetes the strokes in the small or medium size vessel particular the brainstem can occur nevertheless she does not have any focal deficit. The goal of the LDL should be keep it under 65 over around 50 possible. She should have a repeat blood level in 3-4 months time for lipid profile and make adjustments in medications for this can be done by her primary care provider also. I have given her my phone number and if she needs any assistance I shall be glad to help. Consult date: 07/15/25 HPI: Liss Blood is a 60 year old female Who presented to the hospital with the complaints of dizziness. She was found to has significantly high blood glucose and features suggestive of diabetic ketoacidosis. She is managed in intensive care unit initially. Hemoglobin A1c was 11.5 and serum glucose of 501. Her blood pressure is also high. She has improved significantly with the management of her metabolic problems and at this time she denies any symptoms or weakness in upper lower limbs. She is able to ambulate. She wants to go home. MRI of the brain has shown pontine infarct which is considered to be acute and is on the left to the left of the midline. CT angiogram head and neck was performed which did not show any significant abnormality. LDL was high at 125. Patient family members are present at the time of evaluation. Review of Systems 2 Review of Systems: All systems reviewed & are unremarkable except as noted in HPI and below PMFSH Past Medical History Medical History (Updated 07/15/25 @ 16:56 by Tiffany Carlos MD) Brainstem infarct, acute Heart murmur Screening mammogram, encounter for Miscarriage High cholesterol Abnormal Pap smear of cervix ASCUS HPV- (2010) Surgical History Surgical History History of dilation and curettage suction d&c History of foot surgery 2010 tumor removed lt foot History of 88, 89 Family History Family History Father Diabetes mellitus Hypertension TIA (transient ischemic attack) Mother Diabetes mellitus Hypertension Other Malignant carcinoid tumor of lung maternal aunt Social History Social History Smoking packs per day: 1 Smoking cigarettes per day: 20.0 Years smoked: 40 Smoking pack-years: 40.00 Smoking status: Current every day smoker Tobacco type: cigarettes Alcohol intake: current Drinks per week: 6 Substance use: never Substance use type: does not use Lack of Transportation: No Lack of Food: Never True Current Housing: I Have Housing Concerned About Future Housing: No Difficulty Paying Gas/Electric Bills: No Difficulty Paying for Meds: No Currently Unemployed: No Education: Trade/Vocational Certificate Difficulty w/ Childcare or Family Care: No Living arrangements: other Additional living arrangements comments: Occupation/Education: occupation 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 Gender identity (if verbalized by the patient): Female Sexual Orientation (if Verbalized by the Patient): Straight or Heterosexual Spiritual care concerns: No Meds Home Medications and Allergies Home Medications ?Medication ?Instructions ?Recorded ?Confirmed ?Type amlodipine 5 mg tablet (Norvasc) 5 mg PO DAILY 30 days #30 tabs 07/15/25 Rx aspirin 81 mg tablet,delayed 81 mg PO QAM 30 days #30 tabs 07/15/25 Rx release atorvastatin 40 mg tablet 40 mg PO DAILY 30 days #30 t abs 07/15/25 Rx blood sugar diagnostic (OneTouch #1 pkg 07/15/25 Rx Verio test strips) blood-glucose meter (OneTouch #1 pkg 07/15/25 Rx Verio Flex Meter) fenofibrate nanocrystallized 145 145 mg PO QAM 30 days #30 tabs 07/15/25 Rx mg tablet insulin glargine 100 unit/mL (3 15 unit (0.15 mL) subc ut QHS #15 mL 07/15/25 Rx mL) subcutaneous pen (Lantus Solostar U-100 Insulin) insulin lispro 200 unit/mL (3 mL) 5 unit (0.025 mL) aguirre bcut TIDWMEAL 07/15/25 Rx subcutaneous pen (Humalog KwikPen 30 days #6 mL U-200 Insulin) lancets 30 gauge (OneTouch Delica #1 pkg 07/15/25 Rx Plus Lancet) losartan 25 mg tablet 25 mg PO DAILY 30 days #30 t abs 07/15/25 Rx metformin 500 mg tablet 500 mg PO BID 30 days #60 ta bs 07/15/25 Rx pen needle, diabetic 32 gauge x #1 pkg 07/15/25 Rx 5/32 Allergies Allergy/AdvReac Type Severity Reaction Status Date / Time No Known Allergies Allergy Unknown Verified 07/13/25 11:24 Vital Signs Vital Signs - 24 hr 07/14/25 20:00 07/14/25 20:00 07/14/25 21:10 Temperature 97.6 F Pulse Rate 92 78 Respiratory Rate 16 Blood Pressure 149/80 H Pulse Oximetry 98 Oxygen Delivery Room Air 07/15/25 00:00 07/15/25 04:00 07/15/25 05:22 Temperature 97 F L Pulse Rate 65 66 72 Respiratory Rate 16 Blood Pressure 145/64 H Pulse Oximetry 100 Oxygen Delivery 07/15/25 09:00 07/15/25 09:00 Temperature Pulse Rate 72 Respiratory Rate Blood Pressure Pulse Oximetry 100 Oxygen Delivery Room Air Exam 2 Const: General: cooperative, well developed and alert O rientation/consciousness: oriented to person, oriented to place and oriented to time HENMT: Head: atraumatic Mouth: Yes oropharynx normal Eyes: Alignment and Position: position normal Pupils: Equal, round and reactive pupils present EOM: EOMs intact bilaterally Neck: Neck: supple Resp: Effort & Inspection: normal respiratory effort Cardio: Rate: regular rate Rhythm: regular rhythm Heart sounds: Murmur heart sound present Other: Mild ejection systolic murmur was noted over precordium. Patient is aware of it. Skin: General skin exam: normal color Neuro: Cranial nerves: Yes CN's II-XII intact bilaterally, Yes facial sensation intact/muscles of mastication intact, Yes Equal, round and reactive pupils present, Yes Bilaterally intact EOM present, Yes Nystagmus not present, Yes facial symmetry, Yes Midline tongue present, Yes Symmetric palate elevation present and Yes Ability to bilaterally elevate shoulders present Cognition (Neuro): normal cognition Speech: normal speech Gait exam (Neuro): Normal gait present Motor exam (neuro): 5/5 motor strength present throughout, Motor fasciculations not present, Normal motor muscle tone present throughout and Motor abnormalities not present Sensory Exam: normal sensation C oordination: suejxe-[id number] test normal and Normal rapid alternating movements of the distal upper extremity present (Neuro) Results Labs 07/15/25 05:30 07/15/25 05:30 Labs: Short CBC 07/15/25 Range/Units 05:30 WBC 6.2 (4.5-10.0) K/mm3 Hgb 13.5 (12.0-15.0) g/dL Hct 41.8 (37.0-47.0) % Plt Count 225 (150-375) k/mm3 BMP 07/15/25 05:30 Sodium 135 L Potassium 3.9 Chloride 106 Carbon Dioxide 22 BUN 8 Creatinine 0.52 L Glucose 130 H Calcium 9.2 Liver Function 07/15/25 Range/Units 05:30 Total Bilirubin 0.6 (0.2-1.3) mg/dL AST 22 (14-36) U/L ALT 19 (6-35) U/L Alkaline Phosphatase 101 (38-126) U/L Albumin 3.8 (3.5-5.1) g/dL
--- NOTE | 2025-07-31 16:24 | PCCDE ---
07/31/25 DM Educator follow up call completed. Pt states to [facility] seeing 130-140's. Denies questions re: medication or DM at this time. Has appt with new PCP . She would like to meet with new PCP before considering Outpatient (OP) DSMT/MNT. Has information to move forward with OP prn.
== END 2025-07-15 16:29 | disposition home or self-care (01) ==
LOC: ANHED 12:07 → ANHICU 16:31 → ANHCPC 16:31 → ANHICU 07-14 09:07 → ANH3MED 07-14 13:38
PROVIDERS: Internal Medicine; Admitting Provider Internal Medicine; Emergency Provider Emergency Medicine; Visit Provider Internal Medicine
DX: I63.9 Cerebral infarction, unspecified (principal); E11.10 Type 2 diabetes mellitus with ketoacidosis without coma; I10 Essential (primary) hypertension; F17.210 Nicotine dependence, cigarettes, uncomplicated; Z83.3 Family history of diabetes mellitus; Z82.49 Family history of ischemic heart disease and other diseases of the circulatory system; Z82.3 Family history of stroke; Z80.1 Family history of malignant neoplasm of trachea, bronchus and lung; Z20.822 Contact with and (suspected) exposure to COVID-19
CPT/HCPCS: 36415; 36600; 70450; 70496; 70498; 70551; 71045; 80048; 80053; 80061; 80307; 81001; 82010; 82077; 82805; 82948; 83036; 83735; 84100; 85018; 85025; 87040; 87637; 87641; 92522; 92610; 93005; 93306; 96361; 96365; 96366; 96367; 96372; 96374; 96375; 96376; 99285; A9270; G0378; J1650; J1815; J1956; J3360; J3480; J7030; J7120; Q9967

== ENCOUNTER 2025-10-02 08:29 | Outpatient (CLI) | payer OTHER, SELFPAY ==
--- NOTE | ~2025-10-02 | US_ITS ---
EXAM/PROCEDURE: US art doppler w press LE BI HISTORY: PAD BLE COMPARISON: None available. TECHNIQUE: FILIBERTO study FINDINGS: Right and left systolic pressure readings are 169 and 179 Right and left segmental pressure readings are as follows: Distal thigh: 180 on the right and 176 and left Popliteal: 173 and 182 Posterior tibialis: 152 and 137 Dorsalis pedis: 159 and 144 Great toe: 120 and 98 Right and left ABIs are 0.89 and 0.80 Right and left ABIs are 0.67 and 0.55 Plethysmography waveforms appears slightly widened but otherwise unremarkable. IMPRESSION: Mildly abnormal ABIs may represent mild bilateral lower extremity peripheral artery disease. Reviewed, dictated and finalized at location A. ER OPERATOR IMPRESSION: Mildly abnormal ABIs may represent mild bilateral lower extremity peripheral ar emilie disease.
--- OUTSIDE RECORDS SUMMARY | 2025-10-02 08:44 | XMS_ITS | Encounter Summary ---
Author Organization [facility] Healthcare Address [address] [place] [address] Care Team Providers Care Survey Research Manager Name Role Phone Keshawn Mosley MD Primary Care Provide r David Perez DPM, Emory Unavailable Reason for Visit * Reason Onset Date Comments Medical Question/Miscellaneous 09/15/2025 Encounter Details Date Type Department Care Team ([facility] Contact Info) Description 09/15/2025 Telephone [facility] Primary Care [facility] [address] [phone] Keshawn Mosley MD [address] [place] [phone] Medical Question/Miscellaneous Social History Tobacco Use Types Packs/Day Years Used Date Smoking Tobacco: Never Passive Smoke Exposure: Never Smokeless Tobacco: Never Alcohol Use Standard Drinks/Week Comments Never 0 (1 standard drink = 0.6 oz pur e alcohol) AUDIT-C Answer Date Recorded Q1: How often do you have a drink containing alcohol? Never 08/09/2025 Q2: How many drinks containi ng alcohol do you have on a typical day when you are drinking? Patient does not drink Q3: How often do you have si x or more drinks on one occasion? Never 08/09/2025 Comments No Sex and Gender Information Value Date Recorded Sex Assigned at Not on file Legal Sex Female 9:17 AM CDT Gender Identity Not on file Sexual Orientation Not on file documented as of this encounter Miscellaneous Notes * Telephone Encounter - Alanna Bush MA - 09/15/2025 4:23 PM CDT Noted. * Telephone Encounter - Jada Fermin - 09/15/2025 10:38 AM CDT Medical Question/Miscellaneous Caller???s Concern: Patient calling to inform Dr. Keshawn Mosley on what has been going on withher left big toe. Her left big toe had an in-grown toe nail so she made an appointment with Dr. Hernandez with [facility]. Her see Dr. Hernandez. At appointment they could not find a pulse on the top of left big toe but did find a pulse on the bottom of left big toe. Dr. Hernandez ordered an arterial doppler bilateral lower exteremitis with segmental pressure and waveforms including toes, and she is scheduled 10/02/2025. Dr. Hernandez cut her toe-nil and gave her Sulsameth Trimethoprim 800/160 mg to take one tab every 12 hours. This morning 09/15/2025 it was very painful and she was cleaning it up. After putting her sock backon she found her left big toe was pussy-bleeding. She called Dr. Hernandez' office. He is in surgeryand they will call her back once they get direction from Dr. Hernandez. Patient states she was recently diagnosed with type 2 diabetes and just wanted to make sure she wasdoing everything correctly and making Dr. Sudeep Mosley aware of what was going on. Patient will call us back if Dr. Hernandez refers patient back to her PCP for further treatment. Does message need to be routed? Yes-FYI Only documented in this encounter Plan of Treatment Not on file documented as of this encounter Visit Diagnoses Not on filedocumented in this encounter Care Teams Survey Research Manager Relationship Specialty Start Date End Date Keshawn Mosley MD [address] [place] [address] PCP - General Family Medicine 08/17/25 Emory Hernandez Jr., DPM [address] [address] Referring Physician Podiatry 09/15/25 documented as of this encounter
--- OUTSIDE RECORDS SUMMARY | 2025-10-02 08:44 | XMS_ITS | Clinical Summary ---
Author Organization [facility] Address [address] [facility] [address] [place] [address] Care Team Providers Care Inspector Precision Assembly Name Role Phone Keshawn Mosley MD Primary Care Provide r David Perez DPM, Emory Unavailable Allergies No known active allergies Medications atorvastatin (LIPITOR) 40 mg tablet Take 1 tablet (40 mg total) by mouth daily 07/15/2025 Active aspirin 81 mg enteric coated tablet Take 1 tablet (81 mg total) by mouth daily 07/15/2025 Active metFORMIN (GLUCOPHAGE) 500 mg tablet Take 1 tablet (500 mg total) by mouth 2 (two) times a day with meals 180 tablet 1 08/09/2025 Active losartan (COZAAR) 50 mg tablet Take 1 tablet (50 mg total) by mouth daily 90 tablet 1 08/09/2025 08/09/20 26 Active amLODIPine (NORVASC) 5 mg tablet Take 1 tablet (5 mg total) by mouth daily 90 tablet 1 08/09/2025 Active Freestyle InsuLinx strip Test daily before all meals/snacks and once before bedtime. 200 each 2 08/09/2025 Active blood-glucose sensor (Dexcom G7 Sensor) device Dexcom G7 sensor use for 10 days to monitor blood sugar. 9 each 3 08/21/2025 Active blood-glucose,r eceiver,cont (Dexcom G7 Surfacing Machine Operator) misc Dexcom G7 physical therapy technician use daily to monitor blood sugar. 1 each 08/21/2025 Active Active Problems Problem Noted Date Diagnosed Date Brainstem infarct, acute 08/09/2025 DKA (diabetic ketoacidosis) 08/09/2025 Hypertension 08/09/2025 Stroke 08/09/2025 DM2 (diabetes mellitus, type 2) 08/09/2025 Assessment & Plan (08/10/2025 7:22 AM CDT): Orders: POCT hemoglobin A1c Encounters Date Type Department Care Team Description 09/29/2025 Telephone [facility] Primary Care [address] [place] [phone] Keshawn Mosley MD Diabetic Eye Exam (Pt was called for information regarding diabetic eye exam. Pt did not answer VM was left for call back. ) 09/15/2025 Telephone [facility] Care [address] [place] [phone] Keshawn Mosley MD Medical Question/Miscellaneou s 08/17/2025 Telephone [facility] Primary Care [address] [place] [phone] Keshawn Mosley MD Additional Services Or Orders 08/09/2025 4:00 PM CDT Office Visit [facility] [address] [place] [phone] Keshawn Mosley MD Type 2 diabetes mellitus without complication, without long-term current use of insulin (HCC) (Primary Dx) 08/09/2025 Orders Only [facility] [address] [place] [phone] Keshawn Mosley MD from Last 3 Months Immunizations Immunization Administration Dates Next Due Influenza, Unspecified 08/09/2025(Deferr ed: Patient Refused),08/23/2024(Deferred: Patient Refused) Medical History Medical History Date Comments CVA (cerebral vascular accident) (HCC) Essential hypertension DM2 (diabetes mellitus, type 2) Family History Medical History Relation Name Comments Diabetes Father Diabetes Mother Relation Name Status Comments Father Mother Social History Tobacco Use Types Packs/Day Years Used Date Smoking Tobacco: Never Passive Smoke Exposure: Never Smokeless Tobacco: Never Tobacco Cessation:Counseling Given: No Alcohol Use Standard Drinks/Week Comments Never 0 [...] on file Sexual Orientation Not on file Last Filed Vital Signs Vital Sign Reading Time Taken Comments Blood Pressure 142/78 08/09/2025 3:58 PM CDT Pulse 73 08/09/2025 3:58 PM CDT Temperature 36.2 C (97.1 F) 08/09/2025 3:58 PM CDT Respiratory Rate 18 08/09/2025 3:58 PM CDT Oxygen Saturation 99% 08/09/2025 3:58 PM CDT Inhaled Oxygen Concentration - - Weight 62.2 kg (137 lb 3.2 oz) 08/09/2025 3:58 P M CDT Height 154.9 cm (5' 1) 08/09/2025 3:58 PM CDT Body Mass Index 25.92 08/09/2025 3:58 PM CDT Plan of Treatment Health Maintenance Due Date Last Done Comments Albumin Creatinine Ratio, Urine 1965 Breast Cancer Screening-Mammogram 1965 Cervical Cancer Screening 1965 Colon Cancer Screening-Colonoscopy 1965 Depression Screening 1963 Hepatitis C Screening 1965 eGFR 1965 Dilated Eye Exam 1963 Foot Exam 1963 Lipid Panel 1963 DTaP/Tdap/Td Vaccine (1 - Tdap) 1974 Hepatitis B Screening 1981 Regular Well Visit/Exam 18-64 1981 Pneumococcal vaccine <65 (1 of 2 - PCV) 1982 Zoster Vaccine (1 of 2) 2013 Influenza Vaccine (#1) 2025 Hemoglobin A1C 02/06/2026 08/09/2025 Procedures Procedure Name Priority Date/Time Associated Diagnosis Comments POCT HEMOGLOBIN A1C Routine 08/09/2025 4 :30 PM CDT Type 2 diabetes mellitus without complication, without long-term current use of insulin (HCC) from Last 3 Months Results * (ABNORMAL) POCT hemoglobin A1c (08/09/2025 4:30 PM CDT) Hemoglobin A1C, POC 9.3(A) 4.0 - 5.6 % Blood 08/09/2025 4:30 PM CDT Keshawn Mosley MD POINT OF CARE TEST OR DERABLES Final Result from Last 3 Months Insurance * Guarantor: Liss Blood Account Type Relation to Patient Date of Phone Billing Address Personal/Family Self 1965 [address] [place] [phone] [facility] Member Subscriber Plan / Payer (Ef fective 2023-Present) Name:Liss Blood Relation to Subscriber:Spouse Name:Jeremi Jalil Date of :1962 Address: [facility] [place] [address] Payer ID:[id number] (NAIC) Type:AET HMO/O Address: [facility] [id number] [place] [address] Care Teams Inspector Precision Assembly Relationship Specialty Start Date End Date Keshawn Mosley MD [address] [facility] [address] [place] [address] PCP - General Family Medicine 08/17/25 Emory Hernandez Jr., DPM [address] [facility] [address] [facility] [address] [place] [address] [phone] (work) Referring Physician Podiatry 09/15/25
--- OUTSIDE RECORDS SUMMARY | 2025-10-02 08:44 | XMS_ITS | Clinical Summary ---
Author Organization [facility] Address [address] [place] [address] Care Team Providers Care Market Research Interviewer Name Role Phone Unavailable Primary Care Provider Unavailabl e Social History Tobacco Use Types Packs/Day Years Used Date Smoking Tobacco: Never Assessed Comments Unknown Sex and Gender Information Value Date Recorded Sex Assigned at Not on file Legal Sex Female 10:26 AM PSYCHOLOGY DEPARTMENT CHAIR Gender Identity Not on file Sexual Orientation [...] 2013 Zoster Immunization (1 of 2) 2013 Influenza Immunization (#1) 2025 SARS-COV-2 Immunization ( - season) 2025 Respiratory Syncytial Virus (RSV) Immunization (Adult) [...]
== END 2025-10-02 08:30 | disposition home or self-care (01) ==
PROVIDERS: Visit Provider Podiatrist Foot & Ankle Surgery
DX: R93.6 Abnormal findings on diagnostic imaging of limbs (principal); I73.9 Peripheral vascular disease, unspecified
CPT/HCPCS: 93923